=== PATIENT | male | born 1990 | race Caucasian/White ===

== ENCOUNTER → 2017-06-13 | Outpatient (CLI) | payer BC ==
--- NOTE | 2017-06-13 14:49 | XR ---
EXAMINATION TYPE: XR abdomen 1V DATE OF EXAM: 06/13/2017 COMPARISON: NONE INDICATION: Renal stone inability to urinate TECHNIQUE: Single view abdomen frontal projection FINDINGS: There is a normal bowel gas pattern. Psoas margins are normal. No organomegaly is present. No suspicious renal or ureteral stones are identified. IMPRESSION: 1. Unremarkable Abdomen
== END | disposition home or self-care (01) ==
LOC: RADXRYALE 14:25
PROVIDERS: ATTEND Urology
DX: N20.0 Calculus of kidney (principal)
CPT/HCPCS: 74018

== ENCOUNTER 2017-08-25 15:46 | Emergency (ER) | payer BC ==
[2017-08-25 16:00] VITALS: RESP 18
[2017-08-25 16:31] LABS: Appearance,Urine Clear (Clear); Bilirubin,Urine Negative (Negative); Blood,Urine Negative (Negative); Color,Urine Light Yellow; Glucose,Urine (UA) Negative (Negative); Ketones,Urine Negative (Negative); Leukocyte Esterase,Urine Negative (Negative); Nitrite,Urine Negative (Negative); Protein,Urine Negative (Negative); Specific Gravity,Urine 1.012 (1.001-1.035); Urobilinogen,Urine <2.0 mg/dL (<2.0)
--- NOTE | 2017-08-25 16:31 | ED ---
General Adult HPI - General Chief complaint: Urogenital Stated complaint: Male Time Seen by Provider: 08/25/17 16:02 Source: patient, RN notes reviewed Mode of arrival: ambulatory Limitations: no limitations - History of Present Illness Initial comments: Patient 27-year-old male presenting to the emergency room today with chief complaint of urinary retention. Patient does admit unsure if it's related to possible kidney stone. He states that his noticed that his had a difficult time urinating over the last week. He states that it decreased stream. He does admit to a history of stricture. Patient states that she had to strain to urinate today. Patient does admit that his bladder feels full. Admits to pressure and lower abdomen. Denies any other complaints or symptoms. Patient denies any recent fever, chills, shortness of breath, chest pain, back pain, nausea or vomiting, numbness or tingling, constipation or diarrhea, headaches or visual changes, or any other complaints. - Related Data Home Medications Medication Instructions Recorded Confirmed Amoxicillin 875 mg PO Q12HR 08/25/17 08/25/17 Allergies Allergy/AdvReac Type Severity Reaction Status Date / Time No Known Allergies Allergy Verified 08/25/17 16:15 Review of Systems ROS Statement: Those systems with pertinent positive or pertinent negative responses have been documented in the HPI. ROS Other: All systems not noted in ROS Statement are negative. Past Medical History Past Medical History: No Reported History History of Any Multi-Drug Resistant Organisms: None Reported Additional Past Surgical History / Comment(s): structure to ureter. Past Psychological History: No Psychological Hx Reported Smoking Status: Never smoker Past Alcohol Use History: Rare Past Drug Use History: None Reported General Exam - General Exam Comments Initial Comments: General: The patient is awake and alert, in no distress, and does not appear acutely ill. Eye: Pupils are equal, round and reactive to light, extra-ocular movements are intact. No nystagmus. There is normal conjunctiva bilaterally. No signs of icterus. Ears, nose, mouth and throat: There are moist mucous membranes and no oral lesions. Neck: The neck is supple, there is no tenderness or JVD. Cardiovascular: There is a regular rate and rhythm. No murmur, rub or gallop is appreciated. Respiratory: Lungs are clear to auscultation, respirations are non-labored, breath sounds are equal. No wheezes, stridor, rales, or rhonchi. Gastrointestinal: Abdomen soft on palpation. Patient does have tenderness suprapubic over the bladder. No rebound tenderness. No guarding. No CVA tenderness. Musculoskeletal: Normal ROM, no tenderness. Strength 5/5. Sensation intact. Neurological: A&O x 3. CN II-XII intact, There are no obvious motor or sensory deficits. Coordination appears grossly intact. Speech is normal. Skin: Skin is warm and dry and no rashes or lesions are noted. Psychiatric: Cooperative, appropriate mood & affect, normal judgment. Limitations: no limitations Course Vital Signs 08/25/17 08/25/17 15:57 16:39 Temperature 98.6 F Pulse Rate 96 80 Respiratory 18 18 Rate Blood Pressure 133/85 162/95 O2 Sat by Pulse 99 96 Oximetry Medical Decision Making - Medical Decision Making Patient's bladder scan showed greater than a liter. A Man catheter was placed. Patient feeling much better at this time. Exam is soft nontender. Patient's urinalysis reviewed showing no evidence of infection. Patient does admit that he is on antibiotics of Augmentin for sinus infection. Patient will be given a leg bag and advised to follow-up with urology. He states he has [facility] [place] but lives closer to this area would like a referral. Patient is advised to call her office tomorrow for appointment. Advised return if any symptoms increase worsen. - Lab Data Lab Results 08/25/17 Range/Units 16:27 Urine Color Light Yellow Urine Appearance Clear (Clear) Urine pH 6.0 (5.0-8.0) Ur Specific [place] 1.012 (1.001-1.035) Urine Protein Negative (Negative) Urine Glucose (UA) Negative (Negative) Urine Ketones Negative (Negative) Urine Blood Negative (Negative) Urine Nitrite Negative (Negative) Urine Bilirubin Negative (Negative) Urine Urobilinogen <2.0 (<2.0) mg/dL Ur Leukocyte Esterase Negative (Negative) Disposition Clinical Impression: Urinary retention Disposition: HOME SELF-CARE Condition: Good Instructions: Urinary Retention in Men (ED) Additional Instructions: Please follow-up with urologist in the next 1-2 days. Please return to emergency room if the symptoms increase or worsen or for any other concerns. Is patient prescribed a controlled substance at d/c from ED?: No Referrals: Bud Galdamez DO [Primary Care Provider] - 1-2 days Time of Disposition: 16:51
[2017-08-25 16:40] VITALS: BP 162/95; PULSE 80
[2017-08-25 17:03] VITALS: TEMP 97.8
== END 2017-08-25 17:00 | disposition home or self-care (01) ==
LOC: EC 15:46
DX: R33.9 Retention of urine, unspecified (principal); R10.819 Abdominal tenderness, unspecified site
CPT/HCPCS: 51702; 51798; 81003; 87086; 99283

== ENCOUNTER 2018-06-16 08:31 | Day surgery (SDC) | payer BC ==
[2018-06-15 13:42] VITALS: BMI 39.8
[~2018-06-16 08:31] MED LIST: LACTATED RINGERS 1,000 ML IV SCH; LIDOCAINE 1% 20 ML VIAL (10MG/ML) FOR IV START INTRADERMA PRN; MIDAZOLAM (PF) 2 MG/2 ML VIAL IV PRN
[2018-06-16 09:56] VITALS: RESP 16; TEMP 97.2
[2018-06-16] MEDS ORDERED: PROPOFOL 10 MG/ML 20 ML VIAL IV ONE (10:39)
[2018-06-16] MEDS ORDERED: MIDAZOLAM 2 MG/2 ML VIAL ONE (10:39)
[2018-06-16] MEDS ORDERED: fentaNYL (PF) 50 MCG/ML 2 ML AMP ONE (10:39)
--- NOTE | 2018-06-16 11:23 | P.PCN ---
Date of Procedure: 06/16/18 Procedure(s) Performed: Procedures: 1. Esophagogastroduodenoscopy and biopsy. 2. Colonoscopy and biopsy. Preoperative diagnosis: Epigastric pain and altered bowel function. Postoperative diagnosis: 1. Mild antral gastritis. 2. Normal colon and terminal ileum. 3. Multiple biopsies obtained from the duodenum, antrum, esophagus, terminal ileum and right colon. Preparation: HalfLytely prep. Sedation: Was provided by anesthesia. Brief clinical history: The patient is a 28-year-old male who was evaluated in the office last month because of epigastric pain and episodic diarrhea as well as family history of ulcerative colitis in his father. The patient reported occasional black stools and seems like his symptoms were worse over the last month or so. His mother had history of diverticulitis. This would be his first upper endoscopy and his first colonoscopy. Procedure: With the patient on his left lateral decubitus position and after informed consent and adequate sedation, I passed the Olympus-GIF H 190 video upper endoscope through the cricopharyngeus down the esophagus. GE junction was around 42 cm from the incisors and there was no definite hiatal hernia or any obvious esophagitis or complicated reflux disease. The endoscope was then passed into the stomach which was insufflated with air and inspected in detail including the retroflex view in the cardia. There was some minimal mottling and erythema in the antrum but no ulcers or erosions. Pyloric channel, duodenal bulb, post bulbar area and descending duodenum appeared within normal limits. Because of his symptoms, I obtained biopsies from the duodenum, antrum and esophagus then the endoscope was withdrawn and I proceeded with the colonoscopy. Perianal area did not show any fissures or fistulas. There were no masses felt on digital rectal examination. The Olympus CFH 190L video colonoscope was then inserted in the rectum in the usual fashion and advanced to the cecum. I intubated the ileocecal valve and examined the terminal ileum. Terminal ileum and colon appeared healthy with no edema, erythema, friability, ulceration, exudation or spontaneous bleeding. No obvious diverticular disease or other pathology. I obtained biopsies from the terminal ileum and right colon and I retroflexed the endoscope in the rectum before the endoscope was withdrawn. The patient tolerated the procedure well. Plan: The patient was reassured. Will await biopsy results and make further plans based on his course and biopsy results. I will keep you updated on his progress.
[2018-06-16 11:33] VITALS: BP 136/87; PULSE 81
== END 2018-06-16 12:02 | disposition home or self-care (01) ==
LOC: ORWHC2ENDO 08:31
DX: K29.50 Unspecified chronic gastritis without bleeding (principal); K21.9 Gastro-esophageal reflux disease without esophagitis; E66.01 Morbid (severe) obesity due to excess calories; Z68.39 Body mass index [BMI] 39.0-39.9, adult; Z79.899 Other long term (current) drug therapy
CPT/HCPCS: 88305; 45380; 43239; J2250; J3010; J2704

== ENCOUNTER 2018-07-31 14:16 | Emergency (ER) | payer BC ==
[2018-07-31 14:27] VITALS: RESP 16; TEMP 98.3
[2018-07-31] MEDS ORDERED: SODIUM CHLORIDE 0.9% 1,000 ML IV STA (14:52)
[2018-07-31] MEDS ORDERED: KETOROLAC 30 MG/ML 1 ML VIAL IVP STA (14:52)
--- NOTE | 2018-07-31 15:00 | ED ---
General Adult HPI - General Chief complaint: Back Pain/Injury Stated complaint: Kidney pain,poss kidney stone Time Seen by Provider: 07/31/18 14:31 Source: patient Mode of arrival: ambulatory Limitations: no limitations - History of Present Illness Initial comments: Dictation was produced using [employer] dictation software. please excuse any grammatical, word or spelling errors. Chief Complaint: 28-year-old male past medical history of nephrolithiasis presents with left-sided flank pain. History of Present Illness: Is a 28-year-old male with past medical history of nephrolithiasis presents with left-sided flank pain for the past several days. He states he thought he strained his back from lifting however he realizes that he has history of kidney stone. He states that the pain is colicky in nature and radiates down the left flank. Patient had kidney stone approximately 1 year ago. He didn't follow-up with urology. Patient states there was another stone that was seen. Patient otherwise tolerating by mouth. The ROS documented in this emergency department record has been reviewed and confirmed by me. Those systems with pertinent positive or negative responses have been documented in the HPI. All other systems are other negative and/or noncontributory. PHYSICAL EXAM: General Impression: Alert and oriented x3, not in acute distress HEENT: Normocephalic atraumatic, extra-ocular movements intact, pupils equal and reactive to light bilaterally, mucous membranes moist. Cardiovascular: Heart regular rate and rhythm, S1&S2 audible, no murmurs, rubs or gallops Chest: Lungs clear to auscultation bilaterally, no rhonchi, no wheeze, no rales Abdomen: Bowel sounds present, abdomen soft, non-tender, non-distended, no organomegaly Musculoskeletal: Pulses present and equal in all extremities, no peripheral edema Motor: no focal deficits noted Neurological: CN II-XII grossly intact, no focal motor or sensory deficits noted Skin: Intact with no visualized rashes Psych: Normal affect and mood ED course: 28-year-old male with past medical history nephrolithiasis presents with chief complaint of flank pain. All signs upon arrival are within acceptable limits. He states his symptoms today are similar to last year when he was diagnosed with kidney stone. Clinical presentation consistent with nephrolithiasis. Urinalysis is unremarkable. CBC, metabolic panel is unremarkable. There was obtained showing possible 2 mm right upper quadrant calculus. Ultrasound of the kidneys does not demonstrate any hydronephrosis. Patient given intravenous fluids and IV analgesia with improvement of symptoms. Patient to be discharged told to follow-up with urologist as outpatient. He does have a urologist named Dr. Rodriguez In [place]. Agreeable to Plan. - Related Data Home Medications Medication Instructions Recorded Confirmed Ascorbic Acid [Vitamin C] 500 mg PO DAILY 06/15/18 07/31/18 Cholecalciferol [Vitamin D3] 1,000 unit PO DAILY 06/15/18 07/31/18 Multivitamin [Multivitamins Adult 1 tab PO DAILY 06/15/18 07/31/18 Gummies] Omeprazole 20 mg PO DAILY PRN 06/15/18 07/31/18 Tumeric (Unknown) 1 tab PO DAILY 07/31/18 07/31/18 Previous Rx's Medication Instructions Recorded HYDROcodone/APAP 5-325MG [[place] 1 tab PO Q6HR PRN 3 Days #12 tab 07/31/18 5-325] Allergies Allergy/AdvReac Type Severity Reaction Status Date / Time No Known Allergies Allergy Verified 07/31/18 15:16 Review of Systems ROS Statement: Those systems with pertinent positive or pertinent negative responses have been documented in the HPI. ROS Other: All systems not noted in ROS Statement are negative. Past Medical History Past Medical History: GERD/Reflux Additional Past Medical History / Comment(s): abdominal pain,prior bleeding and mucus with stools,steroid /May 2018. hx of kidney stones. 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 Past Anesthesia/Blood Transfusion Reactions: No Reported Reaction Additional Past Anesthesia/Blood Transfusion Reaction / Comment(s): no hx blood transfusion Past Psychological History: No Psychological Hx Reported Smoking Status: Never smoker - Past Family History Father Additional Family Medical History / Comment(s): ulcerative colitis Mother Additional Family Medical History / Comment(s): diverticulitis General Exam Limitations: no limitations Course Vital Signs 07/31/18 07/31/18 14:23 15:58 Temperature 98.3 F Pulse Rate 75 70 Respiratory 16 16 Rate Blood Pressure 145/83 150/102 O2 Sat by Pulse 98 99 Oximetry Medical Decision Making - Lab Data Result diagrams: 07/31/18 15:00 07/31/18 15:00 Lab Results 07/31/18 07/31/18 07/31/18 Range/Units 15:00 15:00 15:00 WBC 9.0 (3.8-10.6) k/uL RBC 4.57 (4.30-5.90) m/uL Hgb 13.7 (13.0-17.5) gm/dL Hct 40.2 (39.0-53.0) % MCV 87.8 (80.0-100.0) fL MCH 30.0 (25.0-35.0) pg MCHC 34.1 (31.0-37.0) g/dL RDW 13.9 (11.5-15.5) % Plt Count 340 (150-450) k/uL Neutrophils % 64 % Lymphocytes % 25 % Monocytes % 6 % Eosinophils % 3 % Basophils % 0 % Neutrophils # 5.8 (1.3-7.7) k/uL Lymphocytes # 2.3 (1.0-4.8) k/uL Monocytes # 0.5 (0-1.0) k/uL Eosinophils # 0.3 (0-0.7) k/uL Basophils # 0.0 (0-0.2) k/uL Sodium 140 (137-145) mmol/L Potassium 4.3 (3.5-5.1) mmol/L Chloride 109 H (98-107) mmol/L Carbon Dioxide 23 (22-30) mmol/L Anion Gap 8 mmol/L BUN 13 (9-20) mg/dL Creatinine 0.84 (0.66-1.25) mg/dL Est GFR (CKD-EPI)AfAm >90 (>60 ml/min/1.73 sqM) Est GFR (CKD-EPI)NonAf >90 (>60 ml/min/1.73 sqM) Glucose 88 (74-99) mg/dL Calcium 9.4 (8.4-10.2) mg/dL Urine Color Light Yellow Urine Appearance Clear (Clear) Urine pH 6.5 (5.0-8.0) Ur Specific [place] 1.007 (1.001-1.035) Urine Protein Negative (Negative) Urine Glucose (UA) Negative (Negative) Urine Ketones Negative (Negative) Urine Blood Negative (Negative) Urine Nitrite Negative (Negative) Urine Bilirubin Negative (Negative) Urine Urobilinogen <2.0 (<2.0) mg/dL Ur Leukocyte Esterase Negative (Negative) Disposition Clinical Impression: Flank pain Disposition: HOME SELF-CARE Condition: Good Instructions (If sedation given, give patient instructions): Kidney Stones (ED) Additional Instructions: follow up with Urologist Prescriptions: HYDROcodone/APAP 5-325MG [[place] 5-325] 1 tab PO Q6HR PRN 3 Days #12 tab PRN Reason: Severe Pain Is patient prescribed a controlled substance at d/c from ED?: Yes Referrals: Akhil Mcghee DO [Primary Care Provider] - 1-2 days Time of Disposition: 16:15
[2018-07-31 15:08] LABS: Basophils % (A) 0 %; Eosinophils # (A) 0.3 k/uL (0-0.7); Eosinophils % (A) 3 %; HCT 40.2 % (39.0-53.0); HGB 13.7 gm/dL (13.0-17.5); Lymphocytes # (A) 2.3 k/uL (1.0-4.8); Lymphocytes % (A) 25 %; MCHC 34.1 g/dL (31.0-37.0); MCV 87.8 fL (80.0-100.0); Mean Platelet Volume 7.2; Monocytes # (A) 0.5 k/uL (0-1.0); Monocytes % (A) 6 %; Neutrophils # (A) 5.8 k/uL (1.3-7.7); Neutrophils % (A) 64 %; Platelet Count 340 k/uL (150-450); RBC 4.57 m/uL (4.30-5.90); RDW 13.9 % (11.5-15.5)
[2018-07-31 15:09] LABS: Appearance,Urine Clear (Clear); Bilirubin,Urine Negative (Negative); Blood,Urine Negative (Negative); Color,Urine Light Yellow; Glucose,Urine (UA) Negative (Negative); Ketones,Urine Negative (Negative); Leukocyte Esterase,Urine Negative (Negative); Nitrite,Urine Negative (Negative); PH, Urine 6.5 (5.0-8.0); Protein,Urine Negative (Negative); Specific Gravity,Urine 1.007 (1.001-1.035); Urobilinogen,Urine <2.0 mg/dL (<2.0)
[2018-07-31 15:27] LABS: Anion Gap 8 mmol/L; Blood Urea Nitrogen 13 mg/dL (9-20); Calcium 9.4 mg/dL (8.4-10.2); Carbon Dioxide 23 mmol/L (22-30); Chloride 109 mmol/L (98-107); Glucose 88 mg/dL (74-99); Potassium 4.3 mmol/L (3.5-5.1); Sodium 140 mmol/L (137-145)
[2018-07-31] MEDS ORDERED: MORPHINE SULFATE 4 MG/ML SYRINGE IVP STA (15:51)
--- NOTE | 2018-07-31 15:53 | XR ---
EXAMINATION TYPE: XR KUB DATE OF EXAM: 07/31/2018 3:43 PM CLINICAL HISTORY: Left flank pain with history of nephrolithiasis TECHNIQUE: Single upright image of the abdomen is obtained. COMPARISON: CT dated 04/01/2016. FINDINGS: Scattered gas is seen in nondilated small bowel loops. Gas and fecal material is seen in no ndilated colon. There is a punctate right calculus in the right upper quadrant that may be related to a small gallstone or renal calculus the lung bases are clear and the osseous structures are intact. IMPRESSION: A 2 mm right upper quadrant calculus could represent nephrolithiasis or cholelithiasis. N o other suspicious calculi in the abdomen or pelvis. Nonobstructive bowel gas pattern.
[2018-07-31 15:59] VITALS: BP 150/102
--- NOTE | 2018-07-31 15:59 | US ---
EXAMINATION TYPE: US kidneys/renal and bladder DATE OF EXAM: 07/31/2018 COMPARISON: CT CLINICAL HISTORY: Pain. Left flank pain EXAM MEASUREMENTS: Right Kidney: 12.3 x 6.4 x 6.3 cm Left Kidney: 11.9 x 6.7 x 6.6 cm Right Kidney: No hydronephrosis or masses seen Left Kidney: No hydronephrosis, small cyst measures 1.2 x 0.9 x 0.8 cm. Bladder: wnl There is no evidence for hydronephrosis at this point in time. No nephrolithiasis is seen. No mahesh s are identified. The urinary bladder is anechoic. Bilateral ureteral jets are seen. IMPRESSION: Left renal cyst measures 1.2 cm. No hydronephrosis of either kidney. No shadowing renal calculi.
[2018-07-31 16:38] VITALS: PULSE 67
== END 2018-07-31 16:41 | disposition home or self-care (01) ==
LOC: EC 14:16
DX: R10.9 Unspecified abdominal pain (principal); K21.9 Gastro-esophageal reflux disease without esophagitis; Z87.442 Personal history of urinary calculi; Z79.899 Other long term (current) drug therapy
CPT/HCPCS: 36415; 80048; 85025; 81003; 87086; 74018; 76770; 99284; 96374; 96375; 96361 ×2; J2270; J1885

== ENCOUNTER → 2018-12-14 | Outpatient (CLI) | payer BC ==
--- NOTE | 2018-12-15 09:33 | XR ---
EXAMINATION TYPE: XR ankle complete RT DATE OF EXAM: 12/14/2018 CLINICAL HISTORY: Medial ankle pain. TECHNIQUE: Frontal, lateral and oblique images of the right ankle are obtained. COMPARISON: None. FINDINGS: Mild soft tissue swelling is seen along the medial ankle with a few linear and tiny osseous fragments seen along the medial malleolus. Ankle mortise intact. No evidence of dislocation. Joint s paces are preserved. Small plantar aspect calcaneal spur. IMPRESSION: Small avulsion fractures at the medial malleolus with soft tissue swelling suggestive of underlying l igamentous injury.
== END ==
LOC: RADXRYALE 16:10
PROVIDERS: ATTEND Physician Assistant Medical

== ENCOUNTER 2018-12-20 11:47 | Emergency (ER) | payer BC ==
[2018-12-20] MEDS ORDERED: ONDANSETRON 4 MG/2 ML VIAL IVP STA (12:10)
[2018-12-20] MEDS ORDERED: KETOROLAC 30 MG/ML 1 ML VIAL IVP STA (12:10)
[2018-12-20] MEDS ORDERED: SODIUM CHLORIDE 0.9% 1,000 ML IV STA (12:10)
[2018-12-20 12:21] LABS: Basophils # (A) 0.1 k/uL (0-0.2); Basophils % (A) 0 %; Eosinophils # (A) 0.1 k/uL (0-0.7); Eosinophils % (A) 1 %; HCT 44.5 % (39.0-53.0); Lymphocytes # (A) 2.1 k/uL (1.0-4.8); Lymphocytes % (A) 17 %; MCH 29.2 pg (25.0-35.0); MCHC 33.7 g/dL (31.0-37.0); MCV 86.5 fL (80.0-100.0); Monocytes # (A) 0.7 k/uL (0-1.0); Monocytes % (A) 5 %; Neutrophils # (A) 9.3 k/uL (1.3-7.7); Neutrophils % (A) 75 %; Platelet Count 385 k/uL (150-450); RBC 5.15 m/uL (4.30-5.90); RDW 13.3 % (11.5-15.5); WBC 12.4 k/uL (3.8-10.6)
[2018-12-20 12:29] LABS: ALT 33 U/L (21-72); AST 27 U/L (17-59); African American GFR (CKD) >90 (>60 ml/min/1.73 sqM); Albumin 4.4 g/dL (3.5-5.0); Alkaline Phosphatase 103 U/L (38-126); Anion Gap 12 mmol/L; Blood Urea Nitrogen 12 mg/dL (9-20); Calcium 9.7 mg/dL (8.4-10.2); Carbon Dioxide 24 mmol/L (22-30); Chloride 106 mmol/L (98-107); Glucose 100 mg/dL (74-99); Non-African American GFR(CKD) 87 (>60 ml/min/1.73 sqM); Sodium 142 mmol/L (137-145); Total Bilirubin 0.7 mg/dL (0.2-1.3); Total Protein 7.6 g/dL (6.3-8.2)
--- NOTE | 2018-12-20 12:32 | ED ---
Abdominal Pain HPI - General Chief Complaint: Abdominal Pain Stated Complaint: Abd/flank pain Time Seen by Provider: 12/20/18 11:52 Source: patient Mode of arrival: wheelchair Limitations: no limitations - History of Present Illness Initial Comments: Patient is a 28-year-old male presenting to the emergency Department with complaints of abdominal pain since this morning. Patient states the pain woke him up early this morning. He states the pain started around his belly button and then traveled to the right lower quadrant. Patient reports associated nausea and vomiting. He describes the pain as sharp and constant. States the pain 8/10. Patient does have a history of kidney stones but he says this feels different. Patient had a lot of pain on a car ride here. Patient denies fever, chills, shortness of breath, diarrhea. Patient's last bowel movement was this morning was normal. Patient denies history of abdominal surgeries. No other complaints at this time. - Related Data Home Medications Medication Instructions Recorded Confirmed Ascorbic Acid [Vitamin C] 500 mg PO DAILY 06/15/18 07/31/18 Cholecalciferol [Vitamin D3] 1,000 unit PO DAILY 06/15/18 07/31/18 Multivitamin [Multivitamins Adult 1 tab PO DAILY 06/15/18 07/31/18 Gummies] Omeprazole 20 mg PO DAILY PRN 06/15/18 07/31/18 Tumeric (Unknown) 1 tab PO DAILY 07/31/18 07/31/18 Previous Rx's Medication Instructions Recorded HYDROcodone/APAP 5-325MG [[place] 1 tab PO Q6HR PRN 3 Days #12 tab 07/31/18 5-325] Ketorolac [Toradol] 10 mg PO Q8HR #15 tab 12/20/18 Ondansetron Odt [Zofran Odt] 4 mg PO Q8HR PRN #10 tab 12/20/18 Tamsulosin [Flomax] 0.4 mg PO DAILY #7 cap 12/20/18 Allergies Allergy/AdvReac Type Severity Reaction Status Date / Time No Known Allergies Allergy Verified 12/20/18 11:48 Review of Systems ROS Statement: Those systems with pertinent positive or pertinent negative responses have been documented in the HPI. ROS Other: All systems not noted in ROS Statement are negative. Past Medical History Past Medical History: GERD/Reflux Additional Past Medical History / Comment(s): abdominal pain,prior bleeding and mucus with stools,steroid /May 2018. hx of kidney stones. 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 Past Anesthesia/Blood Transfusion Reactions: No Reported Reaction Additional Past Anesthesia/Blood Transfusion Reaction / Comment(s): no hx blood transfusion Past Psychological History: No Psychological Hx Reported Smoking Status: Never smoker Past Alcohol Use History: None Reported Past Drug Use History: None Reported - Past Family History Father Additional Family Medical History / Comment(s): ulcerative colitis Mother Additional Family Medical History / Comment(s): diverticulitis General Exam - General Exam Comments Initial Comments: GENERAL: Obese, well-appearing, well-nourished and in mild distress secondary to pain. HEAD: Atraumatic, normocephalic. EYES: Pupils equal round and reactive to light, extraocular movements intact, sclera anicteric, conjunctiva are normal. ENT: TMs normal, nares patent, oropharynx clear without exudates. Moist mucous membranes. NECK: Normal range of motion, supple without lymphadenopathy or JVD. LUNGS: Breath sounds clear to auscultation bilaterally and equal. No wheezes rales or rhonchi. HEART: Regular rate and rhythm without murmurs, rubs or gallops. ABDOMEN: Tender to palpation the umbilical and right lower quadrant. Positive rebound tenderness. Soft, normoactive bowel sounds. No masses appreciated. : Deferred EXTREMITIES: Normal range of motion, no pitting or edema. No clubbing or cyanosis. NEUROLOGICAL: Cranial nerves II through XII grossly intact. Normal speech, normal gait. PSYCH: Normal mood, normal affect. SKIN: Warm, Dry, normal turgor, no rashes or lesions noted. Limitations: no limitations Course Vital Signs 12/20/18 12/20/18 11:48 13:00 Temperature 97.8 F 98.4 F Pulse Rate 74 86 Respiratory 24 16 Rate Blood Pressure 149/77 140/86 O2 Sat by Pulse 98 99 Oximetry Medical Decision Making - Medical Decision Making Patient is a 28-year-old male presenting with right lower quadrant pain since this morning. Patient also has associated nausea and vomiting. Arrival to the ER medicines are stable, patient afebrile. On exam patient has tenderness to right lower quadrant with positive rebound. CBC shows slight leukocytosis likely reactive. CMP is within normal limits. Lactic acid is 2.4, likely from active vomiting. UA shows a few RBCs. No signs of infection. CT of the abdomen shows a 2.5 mm partially obstructing renal right calculus in the level of the UVJ. Appendix appears normal. Patient was given fluids and pain medication and reports improvement this time. Patient is stable for discharge and he is in agreement with this plan. Patient be sent home with Flomax, pain a nd nausea medication. Patient will follow-up with neurologist if symptoms continue. Return parameters were discussed with patient and he verbalized understanding. Case discussed with Dr. Simmons. - Lab Data Result diagrams: 12/20/18 12:02 12/20/18 12:02 Lab Results 12/20/18 12/20/18 12/20/18 Range/Units 12:02 12:02 12:02 WBC 12.4 H (3.8-10.6) k/uL RBC 5.15 (4.30-5.90) m/uL Hgb 15.0 (13.0-17.5) gm/dL Hct 44.5 (39.0-53.0) % MCV 86.5 (80.0-100.0) fL MCH 29.2 (25.0-35.0) pg MCHC 33.7 (31.0-37.0) g/dL RDW 13.3 (11.5-15.5) % Plt Count 385 (150-450) k/uL Neutrophils % 75 % Lymphocytes % 17 % Monocytes % 5 % Eosinophils % 1 % Basophils % 0 % Neutrophils # 9.3 H (1.3-7.7) k/uL Lymphocytes # 2.1 (1.0-4.8) k/uL Monocytes # 0.7 (0-1.0) k/uL Eosinophils # 0.1 (0-0.7) k/uL Basophils # 0.1 (0-0.2) k/uL Sodium 142 (137-145) mmol/L Potassium 4.0 (3.5-5.1) mmol/L Chloride 106 (98-107) mmol/L Carbon Dioxide 24 (22-30) mmol/L Anion Gap 12 mmol/L BUN 12 (9-20) mg/dL Creatinine 1.13 (0.66-1.25) mg/dL Est GFR (CKD-EPI)AfAm >90 (>60 ml/min/1.73 sqM) Est GFR (CKD-EPI)NonAf 87 (>60 ml/min/1.73 sqM) Glucose 100 H (74-99) mg/dL Plasma Lactic Acid Micah 2.4 H* (0.7-2.0) mmol/L Calcium 9.7 (8.4-10.2) mg/dL Total Bilirubin 0.7 (0.2-1.3) mg/dL AST 27 (17-59) U/L ALT 33 (21-72) U/L Alkaline Phosphatase 103 (38-126) U/L Total Protein 7.6 (6.3-8.2) g/dL Albumin 4.4 (3.5-5.0) g/dL Urine Color Urine Appearance (Clear) Urine pH (5.0-8.0) Ur Specific [place] (1.001-1.035) Urine Protein (Negative) Urine Glucose (UA) (Negative) Urine Ketones (Negative) Urine Blood (Negative) Urine Nitrite (Negative) Urine Bilirubin (Negative) Urine Urobilinogen (<2.0) mg/dL Ur Leukocyte Esterase (Negative) Urine RBC (0-5) /hpf Urine WBC (0-5) /hpf Amorphous Sediment (None) /hpf Urine Mucus (None) /hpf 12/20/18 Range/Units 13:25 WBC (3.8-10.6) k/uL RBC (4.30-5.90) m/uL Hgb (13.0-17.5) gm/dL Hct (39.0-53.0) % MCV (80.0-100.0) fL MCH (25.0-35.0) pg MCHC (31.0-37.0) g/dL RDW (11.5-15.5) % Plt Count (150-450) k/uL Neutrophils % % Lymphocytes % % Monocytes % % Eosinophils % % Basophils % % Neutrophils # (1.3-7.7) k/uL Lymphocytes # (1.0-4.8) k/uL Monocytes # (0-1.0) k/uL Eosinophils # (0-0.7) k/uL Basophils # (0-0.2) k/uL Sodium (137-145) mmol/L Potassium (3.5-5.1) mmol/L Chloride (98-107) mmol/L Carbon Dioxide (22-30) mmol/L Anion Gap mmol/L BUN (9-20) mg/dL Creatinine (0.66-1.25) mg/dL Est GFR (CKD-EPI)AfAm (>60 ml/min/1.73 sqM) Est GFR (CKD-EPI)NonAf (>60 ml/min/1.73 sqM) Glucose (74-99) mg/dL Plasma Lactic Acid Micah (0.7-2.0) mmol/L Calcium (8.4-10.2) mg/dL Total Bilirubin (0.2-1.3) mg/dL AST (17-59) U/L ALT (21-72) U/L Alkaline Phosphatase (38-126) U/L Total Protein (6.3-8.2) g/dL Albumin (3.5-5.0) g/dL Urine Color Yellow Urine Appearance Cloudy (Clear) Urine pH 8.5 H (5.0-8.0) Ur Specific [place] 1.042 H (1.001-1.035) Urine Protein Negative (Negative) Urine Glucose (UA) Negative (Negative) Urine Ketones Negative (Negative) Urine Blood Negative (Negative) Urine Nitrite Negative (Negative) Urine Bilirubin Negative (Negative) Urine Urobilinogen <2.0 (<2.0) mg/dL Ur Leukocyte Esterase Moderate H (Negative) Urine RBC 6 H (0-5) /hpf Urine WBC 3 (0-5) /hpf Amorphous Sediment Occasional H (None) /hpf Urine Mucus Rare H (None) /hpf Disposition Clinical Impression: Kidney stone on right side Disposition: HOME SELF-CARE Condition: Stable Instructions (If sedation given, give patient instructions): Kidney Stones (ED) Additional Instructions: Please return to the Emergency Department if symptoms worsen or any other concerns. Continue with Flomax, Zofran for nausea, pain medicine. Follow-up with urology as discussed. Prescriptions: Tamsulosin [Flomax] 0.4 mg PO DAILY #7 cap Ketorolac [Toradol] 10 mg PO Q8HR #15 tab Ondansetron Odt [Zofran Odt] 4 mg PO Q8HR PRN #10 tab PRN Reason: Nausea Is patient prescribed a controlled substance at d/c from ED?: No Referrals: Akhil Mcghee DO [Primary Care Provider] - 1-2 days
[2018-12-20] MEDS ORDERED: MORPHINE SULFATE 4 MG/ML SYRINGE IVP STA (12:39)
--- NOTE | 2018-12-20 13:00 | CT ---
EXAMINATION TYPE: CT abdomen pelvis w con DATE OF EXAM: 12/20/2018 REFERENCE: NONE HISTORY: Pain HISTORY: Lower abdominal/pelvic pain REFERENCE: NONE CT DLP: 1860.6 mGy Automated exposure control for dose reduction was used. TECHNIQUE: Helical acquisition through the abdomen and pelvis was obtained following the oral ingesti on of without Oral Contrast and following intravenous administration of 100 mL of Isovue 300. The keren a was reformatted in axial, coronal and sagittal projections. FINDINGS: Visualized portions of the lungs are clear. There is no pleural or pericardial fluid. The heart is not enlarged. Within the abdomen, the liver is prominent measuring 21 cm. Spleen is upper limits of normal measurin g 13.2 cm. The gallbladder is unremarkable. Both adrenal glands are normal. There is a 1 to 2 mm calculus in the anterior lower pole calyx of the right kidney. There is a 2.5 mm calculus at the level of the right UVJ. There is mild fullness of the ureter and renal pelvis on the right. There is a 1 mm calculus in the anterior lower pole calyx of the left kidney. There is no evidence of hydronephrosis or hydroureter. Limited views of the pancreas are normal. There is no significant retroperitoneal, iliac or inguinal adenopathy. The bladder is unremarkable. There is no significant diverticular change and there is no radiographic evidence of diverticulitis. The appendix is normal. Small bowel loops are normal. There is no evidence of free fluid or free air. IMPRESSION: 1. 2.5 MM PARTIALLY OBSTRUCTING RIGHT RENAL CALCULUS IN THE LEVEL OF THE UVJ. 2. BILATERAL NONOBSTRUCTING NEPHROLITHIASIS. 3. MILD HEPATOSPLENOMEGALY.
[2018-12-20 13:15] VITALS: BP 140/86; PULSE 86; RESP 16; TEMP 98.4
[2018-12-20 13:36] LABS: Amorphous Sediment,Urine Occasional /hpf; Appearance,Urine Cloudy (Clear); Bilirubin,Urine Negative (Negative); Blood,Urine Negative (Negative); Color,Urine Yellow; Glucose,Urine (UA) Negative (Negative); Ketones,Urine Negative (Negative); Leukocyte Esterase,Urine Moderate (Negative); Mucus,Urine Rare /hpf; Nitrite,Urine Negative (Negative); PH, Urine 8.5 (5.0-8.0); Protein,Urine Negative (Negative); RBC,Urine 6 /hpf (0-5); Specific Gravity,Urine 1.042 (1.001-1.035); Urobilinogen,Urine <2.0 mg/dL (<2.0); WBC,Urine 3 /hpf (0-5)
[2018-12-20] MEDS ORDERED: ACET/COD 300 MG/30 MG STARTER PACK 6 TAB BTL PO STA (13:43)
== END 2018-12-20 13:55 | disposition home or self-care (01) ==
LOC: EC 11:47
DX: N20.0 Calculus of kidney (principal); D72.829 Elevated white blood cell count, unspecified
CPT/HCPCS: 36415; 80053; 83605; 85025; 81001; 74177; 99284; 96374; 96375 ×2; 96361 ×2; J2270; J2405; J1885; Q9967

== ENCOUNTER → 2019-04-06 | Outpatient (CLI) | payer BC ==
--- NOTE | 2019-04-06 11:57 | CT ---
EXAMINATION TYPE: CT brain wo con DATE OF EXAM: 04/06/2019 COMPARISON: None HISTORY: 28-year-old male Slip and fall, struck back of head, dizziness TECHNIQUE: Examination was done in axial plane without intravenous contrast. Coronal and sagittal r econstructions performed. CT DLP: 1227 mGycm Automated exposure control for dose reduction was used. FINDINGS: There is no evidence of acute intracranial hemorrhage, acute ischemic changes, mass, mass-effect, or extra-axial fluid collection. There is no effacement of cerebral sulci or basal subarachnoid cister ns. There is no hydrocephalus. There is no midline shift. Johnson-white matter distinction is preserv ed. No calvarial fracture. Paranasal sinuses and mastoid air cells are pneumatized. Orbits and globes are intact. IMPRESSION: No acute intracranial abnormality seen.
== END | disposition home or self-care (01) ==
LOC: RADCTMAIN 11:19
PROVIDERS: ATTEND Physician Assistant Medical
DX: R51 Headache (principal); R42 Dizziness and giddiness
CPT/HCPCS: 70450

== ENCOUNTER → 2019-07-02 | Outpatient (CLI) | payer BC ==
--- NOTE | 2019-07-02 14:49 | XR ---
EXAMINATION TYPE: XR chest 2V DATE OF EXAM: 07/02/2019 COMPARISON: None HISTORY: 29-year-old male shortness of breath and cough TECHNIQUE: Frontal and lateral views FINDINGS: The cardiomediastinal silhouette, aorta, and pulmonary vasculature are within normal limits. Lungs an d pleural spaces are clear. IMPRESSION: No acute cardiopulmonary process.
== END | disposition home or self-care (01) ==
LOC: RADXRYALE 13:23
PROVIDERS: ATTEND Physician Assistant
DX: R05 Cough (principal); R06.02 Shortness of breath
CPT/HCPCS: 71046

== ENCOUNTER → 2019-09-07 | Outpatient (CLI) | payer BC | END | disposition home or self-care (01) | LOC: LABWHC1 09:34 | PROVIDERS: ATTEND Family Medicine | DX: R50.9 Fever, unspecified (principal); R05 Cough | CPT/HCPCS: 87635 ==

== ENCOUNTER → 2020-02-15 | Outpatient (CLI) | payer BC | END | disposition home or self-care (01) | LOC: LABWHC1 13:03 | PROVIDERS: ATTEND Family Medicine | DX: R05 Cough (principal); M79.18 Myalgia, other site | CPT/HCPCS: U0003; C9803 ==

== ENCOUNTER → 2020-02-23 | Outpatient (CLI) | payer BC ==
--- NOTE | 2020-02-23 22:35 | MR ---
EXAMINATION TYPE: MR brain wo con DATE OF EXAM: 02/23/2020 COMPARISON: CT brain April 06, 2019 HISTORY: Headache, amnesia, diplopia, head trauma Apr 2019 TECHNIQUE: Multiplanar, multisequence imaging of the brain and brainstem is performed without IV cont rast. FINDINGS: Diffusion weighted images demonstrate no evidence of a recent infarct or other diffusion abnormality. There is no worrisome extra-axial fluid collection. The ventricular system and cisternal spaces are normal in size and appearance. The brain volume is age appropriate. Occasional tiny focus of T2 hype rintensity scattered throughout the white matter bilaterally. Approximately 5-10 small scattered lesi ons are seen. For reference 3-4 left-sided lesions noted axial image 22 in the deep white matter. T2 Star weighted images show no suspicious intraparenchymal blood product. Midline structures demonstrate normal morphology. The craniocervical junction appears within normal limits. Normal vascular flow voids are present. The visualized sinuses are clear and the globes are i ntact. IMPRESSION: Mild nonspecific white matter changes may be on basis of altered vascular mechanics relat ed to product of migraine headaches given patient's history.
== END | disposition home or self-care (01) ==
LOC: RADMRIMAIN 21:40
PROVIDERS: ATTEND Physician Assistant
DX: R90.82 White matter disease, unspecified (principal); H53.2 Diplopia; R41.3 Other amnesia; R51.0 Headache with orthostatic component, not elsewhere classified
CPT/HCPCS: 70551

== ENCOUNTER → 2021-04-17 | Outpatient (CLI) | payer BC ==
--- NOTE | 2021-04-17 16:31 | CONS ---
CONSULTATION REASON FOR EVALUATION: Sleep apnea HISTORY OF PRESENT ILLNESS: A 30-year-old male patient referred to me for sleep apnea evaluation. The patient was in a good state of health until around 1-1/2 years ago when the patient had an episode of slipping on ice and the patient sustained a concussion to his head. Following that, he started having increased seizures and hypersomnia and fatigue. He gained around 50 pounds since then and for now there is a concern for obstructive sleep apnea and for that reason, patient was referred to me. In terms of his seizures, he is well controlled on Depakote. He is not having active seizures for now. The patient has snoring and he quits breathing at nighttime. He has excessive daytime tiredness and fatigue and sleepiness. He is having trouble paying attention and problems with concentration and memory. 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 For now, he is going to bed around 3:30 am and getting out of bed around 9:00 am. He might take a nap or 2 if needed depending on his condition. He feels drowsy and sleepy during the day. He can easily fall asleep. He is unable to sleep on his back because of loud snore and apnea sleep on his side and stomach. No sleep paralysis. No hallucinations. No cataplexy. No nocturnal seizures. His current Ossian score is at 15. He also has difficulties with urethral stricture and the patient undergoes self catheterization. PAST MEDICAL HISTORY: 1. Head concussion. 2. Seizure disorder. 3. Urethral stricture. 4. Morbid obesity. PAST SURGICAL HISTORY: Includes surgical repair of a urethral stricture. DRUG ALLERGIES: Not known. OUTPATIENT MEDICATIONS INCLUDE: Depakote 750 mg 1 tab in the morning. SOCIAL HISTORY: Nonsmoker. No history of alcohol. No history of IV drugs. Drinks 1 whole cup of coffee on a daily basis. FAMILY HISTORY: Positive for kidney stone in the father, heart disease in grandfather and uncle. REVIEW OF SYSTEMS: Fourteen-point review of system was done. Positive findings are mentioned in history of present illness. The patient is a late sleeper and he has delayed sleep phase syndrome. At same time, the patient has no heartburn, shortness of breath or chest pain overnight. He prefers to sleep on his side. No grinding of the teeth. No sleepwalking or sleep talking. He has noted to wake up occasionally gasping for air and he has also noted to stop breathing during sleep. He snores. He has excessive fatigue and tiredness. No nocturnal seizure activity. PHYSICAL EXAMINATION: VITAL SIGNS: BP is 153/86, pulse 86, respirations 16, temperature 97.8. Neck size 19.5 inches. Height is 6 feet 1 inch, weight is 328. Saturation 98% on room air. BMI is 47.6. GENERAL APPEARANCE: Obese, calm, comfortable. HEAD: Atraumatic, normocephalic. NECK: Supple. No JVD. No goiter or neck mass. Mallampati class 4. LUNGS: Diminished, otherwise clear. HEART: Heart sounds are regular rate and rhythm. Normal S1, S2. No S3, no murmurs. ABDOMEN: Soft, nontender. No organomegaly. Obese. EXTREMITIES: Trace edema. There is no cyanosis or clubbing. IMPRESSION: 1. Chronic hypersomnia post brain concussion. High likelihood for obstructive sleep apnea. The patient has a Mallampati class 4. He has loud snoring and witnessed apneas. The patient carries an Ossian score of 15. 2. Morbid obesity. BMI of 47.6. 3. History of head concussion. 4. History of seizure disorder, well controlled on Depakote. 5. History of urethral stricture. PLAN: 1. Proceed with an in-lab polysomnogram to evaluate for sleep breathing disorder. This will be also a good opportunity to rule out any nocturnal seizures. 2. Encourage weight loss. 3. Implement good sleep hygiene measures. 4. The patient has an obvious delayed component of sleep phase. This needs to be advanced slowly and I suggested the patient getting up earlier in the morning and moving his wake up time by around 1 hour every week. He is interested in shifting his sleep back to somewhere between midnight and 6 or 7 o'clock in the morning. This is possible. He needs to eliminate all naps during the day. Implement good sleep hygiene measures. Gradually phase advance his sleep and we will continue to follow. MMODL / IJN: [id number] /
== END | disposition home or self-care (01) ==
LOC: SLEEP 13:49
PROVIDERS: ATTEND Internal Medicine Critical Care Medicine
DX: G47.33 Obstructive sleep apnea (adult) (pediatric) (principal); E66.01 Morbid (severe) obesity due to excess calories; Z68.42 Body mass index [BMI] 45.0-49.9, adult
CPT/HCPCS: 99211

== ENCOUNTER 2021-06-28 02:02 | Emergency (ER) | payer BC ==
[2021-06-28] MEDS ORDERED: ONDANSETRON ODT 4 MG TAB PO STA (03:58)
--- NOTE | 2021-06-28 05:42 | ED ---
Nausea/Vomiting/Diarrhea HPI - General Chief complaint: Nausea/Vomiting/Diarrhea Stated complaint: NVD Time Seen by Provider: 06/28/21 03:58 Source: patient Mode of arrival: ambulatory Limitations: no limitations - History of Present Illness Initial comments: This patient is a 31-year-old man who presents with concern that he may have had food poisoning. He states that both he and his son had a frozen drink and then over the course of the past day and a half of had multiple episodes of vomiting and diarrhea. No real abdominal pain and some occasional mild cramping. No fever or chills. No bloody stools. No hematemesis. MD complaint: nausea, vomiting -: days(s) Description of Vomiting: food contents Description of Diarrhea: water Associated Abdominal Pain: No Quality: cramping Consistency: intermittent Improves with: none Worsens with: none Context: possible food poisoning Associated Symptoms: denies other symptoms - Related Data Home Medications Medication Instructions Recorded Confirmed Ascorbic Acid [Vitamin C] 500 mg PO DAILY 06/15/18 07/31/18 Cholecalciferol [Vitamin D3] 1,000 unit PO DAILY 06/15/18 07/31/18 Multivitamin [Multivitamins Adult 1 tab PO DAILY 06/15/18 07/31/18 Gummies] Omeprazole 20 mg PO DAILY PRN 06/15/18 07/31/18 Tumeric (Unknown) 1 tab PO DAILY 07/31/18 07/31/18 Previous Rx's Medication Instructions Recorded HYDROcodone/APAP 5-325MG [[place] 1 tab PO Q6HR PRN 3 Days #12 tab 07/31/18 5-325] Ketorolac [Toradol] 10 mg PO Q8HR #15 tab 12/20/18 Ondansetron Odt [Zofran Odt] 4 mg PO Q8HR PRN #10 tab 12/20/18 Tamsulosin [Flomax] 0.4 mg PO DAILY #7 cap 12/20/18 Allergies Allergy/AdvReac Type Severity Reaction Status Date / Time No Known Allergies Allergy Verified 06/28/21 02:12 Review of Systems ROS Statement: Those systems with pertinent positive or pertinent negative responses have been documented in the HPI. ROS Other: All systems not noted in ROS Statement are negative. Constitutional: Denies: fever, chills Respiratory: Denies: cough, dyspnea Cardiovascular: Denies: chest pain, palpitations Gastrointestinal: Reports: nausea, vomiting, diarrhea. Denies: abdominal pain, constipation, hematemesis, melena, hematochezia Genitourinary: Denies: dysuria, hematuria Musculoskeletal: Denies: back pain Skin: Denies: rash Neurological: Denies: headache, weakness, numbness Past Medical History Past Medical History: GERD/Reflux Additional Past Medical History / Comment(s): abdominal pain,prior bleeding and mucus with stools,steroid /May 2018. hx of kidney stones. 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 Past Anesthesia/Blood Transfusion Reactions: No Reported Reaction Additional Past Anesthesia/Blood Transfusion Reaction / Comment(s): no hx blood transfusion Past Psychological History: No Psychological Hx Reported Smoking Status: Never smoker Past Alcohol Use History: None Reported Past Drug Use History: None Reported - Past Family History Father Additional Family Medical History / Comment(s): ulcerative colitis Mother Additional Family Medical History / Comment(s): diverticulitis General Exam Limitations: no limitations General appearance: alert, in no apparent distress Head exam: Present: atraumatic ENT exam: Present: normal oropharynx Respiratory exam: Present: normal lung sounds bilaterally. Absent: respiratory distress, wheezes, rales, rhonchi, stridor Cardiovascular Exam: Present: regular rate, normal rhythm, normal heart sounds. Absent: systolic murmur, diastolic murmur, rubs, gallop GI/Abdominal exam: Present: soft. Absent: distended, tenderness, guarding, rebound, rigid, mass Neurological exam: Present: alert Skin exam: Present: warm, dry, intact, normal color. Absent: rash Course Vital Signs 06/28/21 06/28/21 02:10 06:20 Temperature 98.1 F 98.4 F Pulse Rate 94 70 Respiratory 20 19 Rate Blood Pressure 155/51 130/83 O2 Sat by Pulse 98 98 Oximetry Medical Decision Making - Lab Data Lab Results 06/28/21 Range/Units 04:34 Coronavirus (PCR) Not Detected (Not Detectd) Disposition Clinical Impression: Gastroenteritis Disposition: HOME SELF-CARE Condition: Good Instructions (If sedation given, give patient instructions): Acute Nausea and Vomiting (ED) Is patient prescribed a controlled substance at d/c from ED?: No Referrals: Akhil Mcghee DO [Primary Care Provider] - 1-2 days
[2021-06-28 06:21] VITALS: BP 130/83; PULSE 70; RESP 19; TEMP 98.4
== END 2021-06-28 06:20 | disposition home or self-care (01) ==
LOC: EC 02:02
DX: K52.9 Noninfective gastroenteritis and colitis, unspecified (principal); K21.9 Gastro-esophageal reflux disease without esophagitis; Z79.890 Hormone replacement therapy; Z20.822 Contact with and (suspected) exposure to COVID-19
CPT/HCPCS: 87635; 99284

== ENCOUNTER 2022-02-06 13:16 | Emergency (ER) | payer BC, OTHER ==
[2022-02-06 13:50] LABS: Appearance,Urine Clear (Clear); Bilirubin,Urine Negative (Negative); Blood,Urine Negative (Negative); Color,Urine Light Yellow; Glucose,Urine (UA) Negative (Negative); Ketones,Urine Negative (Negative); Leukocyte Esterase,Urine Negative (Negative); Nitrite,Urine Negative (Negative); PH, Urine 6.5 (5.0-8.0); Protein,Urine Negative (Negative); Specific Gravity,Urine 1.009 (1.001-1.035); Urobilinogen,Urine <2.0 mg/dL (<2.0)
[2022-02-06 14:33] VITALS: TEMP 101.3
[2022-02-06] MEDS ORDERED: IBUPROFEN 600 MG TAB PO STA (14:37)
[2022-02-06] MEDS ORDERED: SODIUM CHLORIDE 0.9% 1,000 ML IV ONE (14:37)
[2022-02-06] MEDS ORDERED: ACETAMINOPHEN TAB 500 MG TAB PO STA (14:37)
--- NOTE | 2022-02-06 14:43 | ED ---
General Adult HPI - General Chief complaint: Abdominal Pain Stated complaint: fever Time Seen by Provider: 02/06/22 14:30 Source: patient, RN notes reviewed, old records reviewed Mode of arrival: ambulatory Limitations: no limitations - History of Present Illness Initial comments: This is a 31-year-old male presents emergency Department stating last night he started not feeling well started having some achiness in his back bilaterally. Patient states he might have urinary tract infection he denies ever having the past. Patient states she spiked a fever 103.1. Patient states he woke up this morning continued to feel under the weather and decided come emergency department. Patient denies abdominal pain even though in the triage note mentions abdominal pain he states it's mostly in the back pain worse kidneys are. Patient denies any cough patient denies shortness of breath or difficulty breathing. Patient denies any chest pain. Patient states he did not get the code vaccine but he did have "approximately year ago. She denies any rashes or lesions or areas of erythema - Related Data Home Medications Medication Instructions Recorded Confirmed Ascorbic Acid [Vitamin C] 500 mg PO DAILY 06/15/18 07/31/18 Cholecalciferol [Vitamin D3] 1,000 unit PO DAILY 06/15/18 07/31/18 Multivitamin [Multivitamins Adult 1 tab PO DAILY 06/15/18 07/31/18 Gummies] Omeprazole 20 mg PO DAILY PRN 06/15/18 07/31/18 Tumeric (Unknown) 1 tab PO DAILY 07/31/18 07/31/18 Previous Rx's Medication Instructions Recorded HYDROcodone/APAP 5-325MG [[place] 1 tab PO Q6HR PRN 3 Days #12 tab 07/31/18 5-325] Ketorolac [Toradol] 10 mg PO Q8HR #15 tab 12/20/18 Ondansetron Odt [Zofran Odt] 4 mg PO Q8HR PRN #10 tab 12/20/18 Tamsulosin [Flomax] 0.4 mg PO DAILY #7 cap 12/20/18 Allergies Allergy/AdvReac Type Severity Reaction Status Date / Time No Known Allergies Allergy Verified 02/06/22 13:25 Review of Systems ROS Statement: Those systems with pertinent positive or pertinent negative responses have been documented in the HPI. ROS Other: All systems not noted in ROS Statement are negative. Past Medical History Past Medical History: GERD/Reflux Additional Past Medical History / Comment(s): abdominal pain,prior bleeding and mucus with stools,steroid /May 2018. hx of kidney stones. 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 Past Anesthesia/Blood Transfusion Reactions: No Reported Reaction Additional Past Anesthesia/Blood Transfusion Reaction / Comment(s): no hx blood transfusion Past Psychological History: No Psychological Hx Reported Smoking Status: Never smoker Past Alcohol Use History: None Reported Past Drug Use History: None Reported - Past Family History Father Additional Family Medical History / Comment(s): ulcerative colitis Mother Additional Family Medical History / Comment(s): diverticulitis General Exam - General Exam Comments Initial Comments: GENERAL: Patient is well-developed and well-nourished. Patient is nontoxic and well- hydrated and is in mild distress. ENT: Neck is soft and supple. No significant lymphadenopathy is noted. Oropharynx is clear. Moist mucous membranes. Neck has full range of motion without elici ting any pain. EYES: The sclera were anicteric and conjunctiva were pink and moist. Extraocular m ovements were intact and pupils were equal round and reactive to light. Eyelids were unremarkable. PULMONARY: Unlabored respirations. Good breath sounds bilaterally. No audible rales rhonchi or wheezing was noted. CARDIOVASCULAR: There is a regular rate and rhythm without any murmurs gallops or rubs. ABDOMEN: Soft and nontender with normal bowel sounds. SKIN: Skin is clear with no lesions or rashes and otherwise unremarkable. NEUROLOGIC: Patient is alert and oriented x3. Cranial nerves II through XII are grossly intact. Motor and sensory are also intact. Normal speech, volume and content. Symmetrical smile. MUSCULOSKELETAL: Normal extremities with adequate strength and full range of motion. No lower extremity swelling or edema. No calf tenderness. LYMPHATICS: No significant lymphadenopathy is noted PSYCHIATRIC: Normal psychiatric evaluation. Limitations: no limitations Course Vital Signs 02/06/22 02/06/22 02/06/22 13:23 14:33 14:55 Temperature 100 F H 101.3 F H Pulse Rate 107 H 94 Respiratory 16 18 Rate Blood Pressure 147/84 119/70 O2 Sat by Pulse 98 99 Oximetry Medical Decision Making - Lab Data Result diagrams: 02/06/22 14:45 02/06/22 14:45 Lab Results 02/06/22 02/06/22 02/06/22 Range/Units 13:31 14:45 14:45 WBC 4.6 (3.8-10.6) k/uL RBC 4.85 (4.30-5.90) m/uL Hgb 14.4 (13.0-17.5) gm/dL Hct 42.6 (39.0-53.0) % MCV 87.8 (80.0-100.0) fL MCH 29.7 (25.0-35.0) pg MCHC 33.9 (31.0-37.0) g/dL RDW 13.4 (11.5-15.5) % Plt Count 270 (150-450) k/uL MPV 7.4 Neutrophils % 66 % Lymphocytes % 17 % Monocytes % 12 % Eosinophils % 1 % Basophils % 2 % Neutrophils # 3.0 (1.3-7.7) k/uL Lymphocytes # 0.8 L (1.0-4.8) k/uL Monocytes # 0.5 (0-1.0) k/uL Eosinophils # 0.1 (0-0.7) k/uL Basophils # 0.1 (0-0.2) k/uL Sodium (137-145) mmol/L Potassium (3.5-5.1) mmol/L Chloride (98-107) mmol/L Carbon Dioxide (22-30) mmol/L Anion Gap mmol/L BUN (9-20) mg/dL Creatinine (0.66-1.25) mg/dL Est GFR (CKD-EPI)AfAm (>60 ml/min/1.73 sqM) Est GFR (CKD-EPI)NonAf (>60 ml/min/1.73 sqM) Glucose (74-99) mg/dL Calcium (8.4-10.2) mg/dL Total Bilirubin (0.2-1.3) mg/dL AST (17-59) U/L ALT (4-49) U/L Alkaline Phosphatase (38-126) U/L Total Protein (6.3-8.2) g/dL Albumin (3.5-5.0) g/dL Urine Color Light Yellow Urine Appearance Clear (Clear) Urine pH 6.5 (5.0-8.0) Ur Specific [place] 1.009 (1.001-1.035) Urine Protein Negative (Negative) Urine Glucose (UA) Negative (Negative) Urine Ketones Negative (Negative) Urine Blood Negative (Negative) Urine Nitrite Negative (Negative) Urine Bilirubin Negative (Negative) Urine Urobilinogen <2.0 (<2.0) mg/dL Ur Leukocyte Esterase Negative (Negative) Coronavirus (PCR) Detected A (Not Detectd) 02/06/22 Range/Units 14:45 WBC (3.8-10.6) k/uL RBC (4.30-5.90) m/uL Hgb (13.0-17.5) gm/dL Hct (39.0-53.0) % MCV (80.0-100.0) fL MCH (25.0-35.0) pg MCHC (31.0-37.0) g/dL RDW (11.5-15.5) % Plt Count (150-450) k/uL MPV Neutrophils % % Lymphocytes % % Monocytes % % Eosinophils % % Basophils % % Neutrophils # (1.3-7.7) k/uL Lymphocytes # (1.0-4.8) k/uL Monocytes # (0-1.0) k/uL Eosinophils # (0-0.7) k/uL Basophils # (0-0.2) k/uL Sodium 139 (137-145) mmol/L Potassium 4.2 (3.5-5.1) mmol/L Chloride 100 (98-107) mmol/L Carbon Dioxide 25 (22-30) mmol/L Anion Gap 14 mmol/L BUN 10 (9-20) mg/dL Creatinine 0.95 (0.66-1.25) mg/dL Est GFR (CKD-EPI)AfAm >90 (>60 ml/min/1.73 sqM) Est GFR (CKD-EPI)NonAf >90 (>60 ml/min/1.73 sqM) Glucose 91 (74-99) mg/dL Calcium 9.3 (8.4-10.2) mg/dL Total Bilirubin 0.7 (0.2-1.3) mg/dL AST 56 (17-59) U/L ALT 68 H (4-49) U/L Alkaline Phosphatase 86 (38-126) U/L Total Protein 7.7 (6.3-8.2) g/dL Albumin 4.7 (3.5-5.0) g/dL Urine Color Urine Appearance (Clear) Urine pH (5.0-8.0) Ur Specific [place] (1.001-1.035) Urine Protein (Negative) Urine Glucose (UA) (Negative) Urine Ketones (Negative) Urine Blood (Negative) Urine Nitrite (Negative) Urine Bilirubin (Negative) Urine Urobilinogen (<2.0) mg/dL Ur Leukocyte Esterase (Negative) Coronavirus (PCR) (Not Detectd) Disposition Clinical Impression: COVID-19 Disposition: HOME SELF-CARE Condition: Good Instructions (If sedation given, give patient instructions): COVID-19 (Coronavirus Disease 2019) (ED) Is patient prescribed a controlled substance at d/c from ED?: No Referrals: Akhil Mcghee DO [Primary Care Provider] - 1-2 days Time of Disposition: 15:11
[2022-02-06 14:54] LABS: Basophils # (A) 0.1 k/uL (0-0.2); Basophils % (A) 2 %; Eosinophils # (A) 0.1 k/uL (0-0.7); Eosinophils % (A) 1 %; HCT 42.6 % (39.0-53.0); HGB 14.4 gm/dL (13.0-17.5); Lymphocytes # (A) 0.8 k/uL (1.0-4.8); Lymphocytes % (A) 17 %; MCH 29.7 pg (25.0-35.0); MCHC 33.9 g/dL (31.0-37.0); MCV 87.8 fL (80.0-100.0); Mean Platelet Volume 7.4; Monocytes # (A) 0.5 k/uL (0-1.0); Monocytes % (A) 12 %; Neutrophils % (A) 66 %; Platelet Count 270 k/uL (150-450); RBC 4.85 m/uL (4.30-5.90); RDW 13.4 % (11.5-15.5); WBC 4.6 k/uL (3.8-10.6)
[2022-02-06 14:57] VITALS: BP 119/70; PULSE 94; RESP 18
[2022-02-06 15:02] LABS: ALT 68 U/L (4-49); AST 56 U/L (17-59); African American GFR (CKD) >90 (>60 ml/min/1.73 sqM); Albumin 4.7 g/dL (3.5-5.0); Alkaline Phosphatase 86 U/L (38-126); Anion Gap 14 mmol/L; Blood Urea Nitrogen 10 mg/dL (9-20); Calcium 9.3 mg/dL (8.4-10.2); Carbon Dioxide 25 mmol/L (22-30); Chloride 100 mmol/L (98-107); Glucose 91 mg/dL (74-99); Non-African American GFR(CKD) >90 (>60 ml/min/1.73 sqM); Potassium 4.2 mmol/L (3.5-5.1); Sodium 139 mmol/L (137-145); Total Bilirubin 0.7 mg/dL (0.2-1.3); Total Protein 7.7 g/dL (6.3-8.2)
== END 2022-02-06 15:42 | disposition home or self-care (01) ==
LOC: EC 13:16
DX: U07.1 COVID-19 (principal); K21.9 Gastro-esophageal reflux disease without esophagitis; Z79.899 Other long term (current) drug therapy
CPT/HCPCS: 36415; 80053; 81003; 85025; 87635; 96360; 99284

== ENCOUNTER 2024-05-16 17:25 | Observation (INO) | payer OTHER ==
--- NOTE | 2024-05-16 17:50 | ED ---
Chest Pain HPI - General Chief Complaint: Chest Pain Stated Complaint: chest pain Time Seen by Provider: 05/16/24 17:36 Source: patient Mode of arrival: wheelchair Limitations: no limitations - History of Present Illness Initial Comments: 33-year-old male presenting with chief complaint of chest pain. Symptoms started last night. States that they have been progressively worsening. States that it feels like someone is standing on top of his chest. He initially thought the pain was due to indigestion. He is having some radiation to the left side of his neck and down his left arm. Some pain in the left shoulder blade as well. Worse with movement, exertion, and deep breaths. Mild cough. Admits to nausea, shortness of breath, and dizziness. No abdominal pain. No lower extremity swelling. Admits to family history of heart disease - Related Data Home Medications Medication Instructions Recorded Confirmed Ascorbic Acid [Vitamin C] 500 mg PO DAILY 06/15/18 07/31/18 Cholecalciferol [Vitamin D3] 1,000 unit PO DAILY 06/15/18 07/31/18 Multivitamin [Multivitamins Adult 1 tab PO DAILY 06/15/18 07/31/18 Gummies] Omeprazole 20 mg PO DAILY PRN 06/15/18 07/31/18 Tumeric (Unknown) 1 tab PO DAILY 07/31/18 07/31/18 Previous Rx's Medication Instructions Recorded HYDROcodone/APAP 5-325MG [[place] 1 tab PO Q6HR PRN 3 Days #12 tab 07/31/18 5-325] Ketorolac [Toradol] 10 mg PO Q8HR #15 tab 12/20/18 Ondansetron Odt [Zofran Odt] 4 mg PO Q8HR PRN #10 tab 12/20/18 Tamsulosin [Flomax] 0.4 mg PO DAILY #7 cap 12/20/18 Ondansetron Odt [Zofran Odt] 4 mg PO Q8HR PRN #10 tab 06/25/22 Allergies Allergy/AdvReac Type Severity Reaction Status Date / Time No Known Allergies Allergy Verified 05/16/24 17:26 Review of Systems ROS Statement: Those systems with pertinent positive or pertinent negative responses have been documented in the HPI. ROS Other: All systems not noted in ROS Statement are negative. Past Medical History Past Medical History: GERD/Reflux Additional Past Medical History / Comment(s): abdominal pain,prior bleeding and mucus with stools,steroid /May 2018. hx of kidney stones. 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 Past Anesthesia/Blood Transfusion Reactions: No Reported Reaction Additional Past Anesthesia/Blood Transfusion Reaction / Comment(s): no hx blood transfusion Past Psychological History: No Psychological Hx Reported Smoking Status: Never smoker Past Alcohol Use History: Occasional Past Drug Use History: None Reported - Past Family History Father Additional Family Medical History / Comment(s): ulcerative colitis Mother Additional Family Medical History / Comment(s): diverticulitis General Exam Limitations: no limitations General appearance: alert, in no apparent distress Head exam: Present: atraumatic, normocephalic, normal inspection Eye exam: Present: normal appearance, EOMI Neck exam: Present: normal inspection. Absent: meningismus Respiratory exam: Present: normal lung sounds bilaterally. Absent: respiratory distress, wheezes, rales, rhonchi, stridor Cardiovascular Exam: Present: regular rate, normal rhythm, normal heart sounds. Absent: systolic murmur, diastolic murmur, rubs, gallop, clicks Extremities exam: Absent: pedal edema Neurological exam: Present: alert, oriented X3 Psychiatric exam: Present: normal affect, normal mood Skin exam: Present: warm, dry Course Vital Signs 05/16/24 05/16/24 05/16/24 17:26 18:37 19:35 Temperature 97.7 F Pulse Rate 88 79 79 Respiratory 24 18 18 Rate Blood Pressure 147/92 131/80 135/92 O2 Sat by Pulse 99 99 98 Oximetry 05/16/24 05/16/24 05/17/24 20:28 22:58 00:00 Temperature 97.9 F Pulse Rate 82 75 69 Respiratory 18 16 18 Rate Blood Pressure 134/90 120/68 127/73 O2 Sat by Pulse 98 96 96 Oximetry Chest Pain [facility] E[facility] shows sinus rhythm ventricular rate 87. PA interval 151. QRS 93. QT 357. QTc 401. No ST deviation. No previous available for comparison Was pt. sent in by a medical professional or institution (, PA, FORENSIC SPECIALIST, urgent care, hospital, or care home...) When possible be specific @ -No Did you speak to anyone other than the patient for history (EMS, parent, family, police, friend...)? What history was obtained from this source @ -No Did you review nursing and triage notes (agree or disagree)? Why? @ -I reviewed and agree with nursing and triage notes Were old charts reviewed (outside hosp., previous admission, EMS record, old EKG, old radiological studies, urgent care reports/EKG's, care home records)? Report findings @ -No old charts were reviewed Differential Diagnosis (chest pain, altered mental status, abdominal pain women, abdominal pain men, vaginal bleeding, weakness, fever, dyspnea, syncope, headache, dizziness, GI bleed, back pain, seizure, CVA, palpatations, mental health, musculoskeletal)? @ -MDM Differential Chest Pain: Stable Angina, Unstable Angina, STEMI, NSTEMI Aortic Dissection, Pneumothorax, Musculoskeletal, Esophageal Spasm GERD, Cholecystitis, Pancreatitis, Zoster This is not meant to be an all-inclusive list. EKG interpreted by me (3pts min.). @ -As above X-rays interpreted by me (1pt min.). @ -Chest x-ray shows no acute process CT interpreted by me (1pt min.). @ -None done U/S interpreted by me (1pt. min.). @ -None done What testing was considered but not performed or refused? (CT, X-rays, U/S, labs)? Why? @ -None What meds were considered but not given or refused? Why? @ -None Did you discuss the management of the patient with other professionals (professionals i.e. , PA, FORENSIC SPECIALIST, lab, RT, psych nurse, health care social worker, hands hanger, teacher, senior administrative services officer, casework supervisor)? Give summary @ -Spoke with Dr. Jolley who accepts admission Was smoking cessation discussed for >3mins.? @ -No Was critical care preformed (if so, how long)? @ -No Were there social determinants of health that impacted care today? How? (Homelessness, low income, unemployed, alcoholism, drug addiction, transportation, low edu. Level, literacy, decrease access to med. care, halfway, rehab)? @ -No Was there de-escalation of care discussed even if they declined (Discuss DNR or withdrawal of care, Hospice)? DNR status @ -No What co-morbidities impacted this encounter? (DM, HTN, Smoking, COPD, CAD, Cancer, CVA, ARF, Chemo, Hep., AIDS, mental health diagnosis, sleep apnea, morbid obesity)? @ -None Was patient admitted / discharged? Hospital course, mention meds given and route, prescriptions, significant lab abnormalities, going to OR and other pertinent info. @ -33-year-old male presenting with chief complaint of chest pain. History and physical examination are conducted. Negative troponin. D-dimer WNL. No leukocytosis or anemia. Chest x-ray shows no acute process and EKG shows sinus rhythm. Given the patient's description of his pain, history of hypertension, morbid obesity, and family history of heart disease he is heart score 4 and will be admitted for evaluation by cardiology and echo. Patient is agreeable with this plan. I discussed this case with my attending Dr. Iglesias. Undiagnosed new problem with uncertain prognosis? @ -No Drug Therapy requiring intensive monitoring for toxicity (Heparin, Nitro, Insulin, Cardizem)? @ -No Were any procedures done? @ -No Diagnosis/symptom? @ -Chest pain Acute, or Chronic, or Acute on Chronic? @ -Acute Uncomplicated (without systemic symptoms) or Complicated (systemic symptoms)? @ -Complicated Side effects of treatment? @ -No Exacerbation, Progression, or Severe Exacerbation? @ -No Poses a threat to life or bodily function? How? (Chest pain, [place], [place], pneumonia, PE, COPD, DKA, ARF, appy, cholecystitis, CVA, Diverticulitis, Homicidal, Suicidal, threat to staff... and all critical care pts) @ -Yes Disposition Clinical Impression: Chest pain Disposition: ADMITTED IP TO THIS HOSP Condition: Fair
[2024-05-16] MEDS: NITROGLYCERIN SL TABS 0.4 MG TAB SUBLINGUAL STA ×2 (18:01→20:05)
[2024-05-16 18:12] LABS: Basophils % (A) 0 %; Eosinophils # (A) 0.2 k/uL (0-0.7); Eosinophils % (A) 2 %; HCT 40.7 % (39.0-53.0); HGB 14.1 gm/dL (13.0-17.5); Lymphocytes % (A) 24 %; MCH 30.3 pg (25.0-35.0); MCHC 34.7 g/dL (31.0-37.0); MCV 87.2 fL (80.0-100.0); Mean Platelet Volume 7.6; Monocytes # (A) 0.4 k/uL (0-1.0); Monocytes % (A) 5 %; Neutrophils # (A) 5.6 k/uL (1.3-7.7); Neutrophils % (A) 67 %; Platelet Count 300 k/uL (150-450); RBC 4.67 m/uL (4.30-5.90); RDW 13.7 % (11.5-15.5); WBC 8.4 k/uL (3.8-10.6)
--- NOTE | 2024-05-16 18:24 | XR ---
EXAMINATION TYPE: XR chest 2V DATE OF EXAM: 05/16/2024 6:17 PM COMPARISON: 07/02/2019 CLINICAL INDICATION: Male, 33 years old with history of Chest Pain,States he thought it was indigesti on but now feels like somebody is standing on his chest, his heart is "flipping", and pain is shootin g down L arm. Endorses nausea, SOB, and L jaw/neck pain TECHNIQUE: XR chest 2V view(s) obtained. FINDINGS: The heart size is normal. The pulmonary vasculature is normal. The lungs are clear. IMPRESSION: 1. No acute pulmonary process. [facility], , 05/16/2024 6:22 PM
[2024-05-16 18:26] LABS: ALT 32 U/L (4-49); AST 26 U/L (17-59); African American GFR (CKD) >90 (>60 ml/min/1.73 sqM); Albumin 4.6 g/dL (3.5-5.0); Alkaline Phosphatase 90 U/L (38-126); Anion Gap 11 mmol/L; Blood Urea Nitrogen 17 mg/dL (9-20); Calcium 9.7 mg/dL (8.4-10.2); Carbon Dioxide 25 mmol/L (22-30); Chloride 104 mmol/L (98-107); Glucose 87 mg/dL (74-99); Lipase 94 U/L (23-300); Magnesium 1.9 mg/dL (1.6-2.3); Non-African American GFR(CKD) >90 (>60 ml/min/1.73 sqM); Potassium 4.1 mmol/L (3.5-5.1); Salicylate <1.0 mg/dL; Sodium 140 mmol/L (137-145); Total Bilirubin 0.4 mg/dL (0.2-1.3); Total Protein 7.6 g/dL (6.3-8.2)
[2024-05-16 18:36] LABS: INR 0.9 (<1.2); Partial Thromboplastin Time 26.3 sec (22.0-30.0)
[2024-05-16 19:54] LABS: Appearance,Urine Clear (Clear); Bilirubin,Urine Negative (Negative); Blood,Urine Negative (Negative); Calcium Oxalate Crystals,Urine Occasional /hpf; Color,Urine Light Yellow; Glucose,Urine (UA) Negative (Negative); Ketones,Urine Negative (Negative); Leukocyte Esterase,Urine Small (Negative); Mucus,Urine Occasional /hpf; Nitrite,Urine Negative (Negative); Protein,Urine Negative (Negative); RBC,Urine 2 /hpf (0-5); Specific Gravity,Urine 1.026 (1.001-1.035); Squamous Epithelial Cell,Urine <1 /hpf (0-4); Urobilinogen,Urine <2.0 mg/dL (<2.0); WBC,Urine 10 /hpf (0-5)
[2024-05-16] MEDS ORDERED: NALOXONE 0.4 MG/ML 1 ML VIAL IV PRN (21:04)
[2024-05-16] MEDS ORDERED: LORazepam 1 MG TAB PO PRN (23:19)
--- NOTE | 2024-05-16 23:40 | P.HPIM ---
History of Present Illness H&P Date: 05/15/24 33 year old male with hypertension not on medications, GERD patient coming in for evaluation of sudden onset chest pain that started last night at rest after he watched the Hockey game , he managed to sleep and rest , but woke up to the same pain and decided to come in for evaluation due to family history of CAD usually around age of 50. he describes chest tightness retrosternal with feeling near syncope, dizzy weak, sweaty, nauseated, and short of breath. he never had any cardiac workup before, denies any CAD. he denies smoking, drugs or alcohol he denies any recent travel or hospital stay , denies any history of blood clots review of systems Pertinent positives as noted in HPI. All other systems were reviewed and are negative on exam Constitutional: No acute distress, conversant, pleasant Eyes: Anicteric sclerae, moist conjunctiva, Pupils equal round reactive to light ENMT: NC/AT Oropharynx clear, no erythema, or exudates Neck: Supple, no masses, or JVD No carotid bruits No thyromegaly Lungs: Clear to auscultation Clear to percussion Normal respiratory effort, no accessory muscle use Cardiovascular: Heart regular in rate and rhythm, No murmurs, gallops, or rubs No peripheral edema Abdominal: Soft Nontender, no guarding, rebound or rigidity Abdomen moving with respiration Normoactive bowel sounds Extremities: No digital cyanosis No clubbing Pedal pulses intact and symmetrical Radial pulses intact and symmetrical No calf tenderness Psychiatric: Alert and oriented to person, place and time Appropriate affect fair judgement Neuro Muscles Strength 5/5 in all 4 extremities Sensation to light touch grossly present throughout Cranial nerves II-XII grossly intact Past Medical History Past Medical History: GERD/Reflux History of Any Multi-Drug Resistant Organisms: None Reported Additional Past Surgical History / Comment(s): 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 Past Anesthesia/Blood Transfusion Reactions: No Reported Reaction Additional Past Anesthesia/Blood Transfusion Reaction / Comment(s): no hx blood transfusion Past Psychological History: No Psychological Hx Reported Smoking Status: Never smoker Past Alcohol Use History: Occasional Past Drug Use History: None Reported - Past Family History Father Additional Family Medical History / Comment(s): ulcerative colitis Mother Additional Family Medical History / Comment(s): diverticulitis Medications and Allergies Home Medications Medication Instructions Recorded Confirmed Type Ascorbic Acid [Vitamin C] 500 mg PO DAILY 02/11/19 03/29/19 History Cholecalciferol [Vitamin D3] 1,000 unit PO DAILY 06/15/18 07/31/18 History Multivitamin [Multivitamins Adult 1 tab PO DAILY 06/15/18 07/31/18 History Gummies] Omeprazole 20 mg PO DAILY PRN 06/15/18 07/31/18 History HYDROcodone/APAP 5-325MG [[place] 1 tab PO Q6HR PRN 3 Days #12 tab 07/31/18 Rx 5-325] Tumeric (Unknown) 1 tab PO DAILY 07/31/18 07/31/18 History Ketorolac [Toradol] 10 mg PO Q8HR #15 tab 12/20/18 Rx Ondansetron Odt [Zofran Odt] 4 mg PO Q8HR PRN #10 tab 12/20/18 Rx Tamsulosin [Flomax] 0.4 mg PO DAILY #7 cap 12/20/18 Rx Ondansetron Odt [Zofran Odt] 4 mg PO Q8HR PRN #10 tab 06/25/22 Rx Allergies Allergy/AdvReac Type Severity Reaction Status Date / Time No Known Allergies Allergy Verified 05/16/24 17:26 Physical Exam Vitals: Vital Signs Temp Pulse Resp BP Pulse Ox 05/16/24 20:28 82 18 134/90 98 05/16/24 19:35 79 18 135/92 98 05/16/24 18:37 79 18 131/80 99 05/16/24 17:26 97.7 F 88 24 147/92 99 Intake and Output 05/16/24 05/16/24 05/16/24 06:59 14:59 22:59 Other: Weight 145.15 kg Results CBC & Chem 7: 05/16/24 18:00 05/16/24 18:00 Labs: Abnormal Lab Results - Last 24 Hours (Table) 05/16/24 Range/Units 19:33 Ur Leukocyte Esterase Small H (Negative) Urine WBC 10 H (0-5) /hpf Calcium Oxalate Crystal Occasional H (None) /hpf Urine Mucus Occasional H (None) /hpf Assessment and Plan Assessment: 33 year old male with hypertension not on medications, GERD coming in for chest pain evaluation , I discussed the case with ED doc and I accepted the admission for atypical chest pain to rule out ACS Atypical chest pain EKG no acute ST changes, trops negative continue to trend pain improved with nitro, continue PRN sl nitro as needed aspirin 81 mg po daily check lipid panel , TSH , echo pvc monitor Ativan 1 mg po TID PRN anxiety cardio consult blood work otherwise unremarkable WBC 8, Hgb 14 , NA 140, K 4 BN 17 cr 0.8 full code DVT PPX lovenox 40 mg sc daily GI PPX protonix 40 mg po daily
[2024-05-17] MEDS: ACETAMINOPHEN TAB 325 MG TAB PO PRN (04:22)
[2024-05-17] MEDS: TAMSULOSIN 0.4 MG CAP.ER.24H PO SCH (08:26)
[2024-05-17] MEDS: PANTOPRAZOLE 40 MG TABLET PO SCH (08:26)
[2024-05-17] MEDS: ASPIRIN 81 MG PO SCH (08:26)
[2024-05-17] MEDS: ENOXAPARIN 40 MG/0.4 ML SYRINGE SQ SCH (08:26)
[2024-05-17 09:20] LABS: Chol/HDL Ratio 6.26 Ratio; LDL Cholesterol,Calculated 97.8 mg/dL (0.0-131.0)
--- NOTE | 2024-05-17 10:42 | CA ---
Transthoracic Echo Report Name: Celestino Crandall Age: 33 Gender: M : 1990 Exam Date: 05/17/2024 07:56 Exam Location: [place] [facility] Ht (in): 74 Wt (lb): 320 Ordering Physician: Genny Chou Attending/Referring Phys: Food Handler Omayra Dorsey RDCS Procedure CPT: Indications: Chest Pain Cardiac Hx: Technical Quality: Fair Contrast 1: Definity Total Dose (mL): 2 Contrast 2: Total Dose (mL): MEASUREMENTS (Male / Female) Normal Values 2D ECHO LV Diastolic Diameter PLAX 4.9 cm 4.2 - 5.9 / 3.9 - 5.3 cm LV Systolic Diameter PLAX 2.9 cm IVS Diastolic Thickness 1.4 cm 0.6 - 1.0 / 0.6 - 0.9 cm LVPW Diastolic Thickness 1.4 cm 0.6 - 1.0 / 0.6 - 0.9 cm LV Relative Wall Thickness 0.6 RV Internal Dim ED PLAX 2.7 cm LA Systolic Diameter LX 4.4 cm 3.0 - 4.0 / 2.7 - 3.8 cm M-MODE Aortic Root Diameter MM 3.7 cm LA Systolic Diameter MM 4.6 cm LA Ao Ratio MM 1.3 AV Cusp Separation MM 2.5 cm DOPPLER Mitral E Point Velocity 93.4 cm/s Mitral A Point Velocity 56.7 cm/s Mitral E to A Ratio 1.6 MV Deceleration Time 220.6 ms MV E' Velocity 9.3 cm/s Mitral E to MV E' Ratio 10.1 FINDINGS Left Ventricle Left ventricular ejection fraction is estimated at 50-55%. Normal left ventricular systolic function with no obvious regional wall motion abnormalities. Left ventricular cavity size normal.Mildly increased left ventricular wall thickness. Right Ventricle Mild right ventricular dilatation. Unable to estimate the right ventricular systolic pressure. Right Atrium Mild right atrial dilatation. Left Atrium Mildly increased left atrial diameter. Mitral Valve Structurally normal mitral valve. Mild mitral regurgitation. No mitral stenosis. Aortic Valve Trileaflet aortic valve. No aortic valve stenosis or regurgitation. Tricuspid Valve Structurally normal tricuspid valve. Mild tricuspid regurgitation. No tricuspid stenosis. Pulmonic Valve Pulmonic valve not well visualized. . No pulmonic stenosis. Trace pulmonic regurgitation. Pericardium No pericardial or pleural effusion. Aorta Aorta at upper limits of normal. CONCLUSIONS 1. Normal left ventricular size and systolic function 2. Mild mitral and tricuspid regurgitation Technically difficult study. Definity ECHO contrast used for improved visualization of the endocardial borders (inadequate visualization of two or more contiguous segments). Previewed by: Dr. Russell Gomez MD (Electronically Signed) Final Date: 17 May 2024 10:41
--- NOTE | 2024-05-17 10:54 | CA ---
Stress Echo Report Celestino Crandall Age: 33 Gender: M : 1990 Exam Date: 05/17/2024 09:23 Exam Location: [facility] Echo Ht (in): 74 Wt (lb): 325 Ordering Physician: Babs Monsivais Referring Physician: [id number] Nut Orchardist: PETE, Technologist Procedure CPT: Indication: CP ICD-9 Codes: Rhythm: Patient History: Chest pain and palpitations Cardiac Medications: Medications in past 24 hours: Contrast: Definity Stress Results Protocol: Moreno Total dose(mL): 2 Exercise Duration (min:sec): 9:[address] Depression (mm): 0 Angina Score: 0 Yee Score: 9.7 METS: 11.3 Resting HR: 74 Resting BP: 160 / 98 Peak HR: 166 Peak BP: 217 / 76 Max Predicted HR: 185 90 % Max Predicted HR Target HR: 157 Double Product: 39115 Stress Summary: BP Response: Normal Reason for Termination: Reached target heart rate or work- load., Maximal effort/unable to continue Cardiac Symptoms: Chest pain ECG Analysis Resting ECG: Normal sinus rhythm, normal ECG Stress ECG: No abnormal ST/T wave changes with exercise Arrhythmia: None Echo Analysis Resting Echo: Normal resting echocardiogram. Peak Echo Analysis: Normal wall thickening and motion at peak exercise MEASUREMENTS (Male/Female) Normal Values CONCLUSIONS Patient falls into low-risk group (DTS >= +5). This associates the patient with an annual CV mortality <= 0.5%. Good exercise tolerance with normal electrocardiographic response to exercise Normal stress echocardiogram with no evidence of stress induced ischemia Dr. Russell Gomez MD (Electronically Signed) Final Date: 17 May 2024 10:53
[2024-05-17 12:06] VITALS: BP 148/96; PULSE 98; RESP 16; TEMP 98.4
--- NOTE | 2024-05-17 12:18 | P.CRDCN ---
History of Present Illness History of present illness: HISTORY OF PRESENT ILLNESS: This is a 33-year-old male with a past medical history significant for concussion 4 years ago, seizures, kidney stones with hematuria, hypertension, and occasional nicotine use out of a pipe. 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 We have been asked to see the patient in consultation for chest pain. Patient examined at the bedside in the emergency room. Patient states 2 nights ago he started to have chest discomfort. He states the pain went away on its own. However yesterday he was playing with his kids when he started to have chest pain again that radiation into his left arm. He states the pain is worse with deep inspiration and chest wall palpation. He reports that he has been feeling short of breath recently as well. He denies alcohol use. He reports 1 cup of coffee daily. He does report occasional nicotine use with a pipe. He do es report a family history of CAD and states that his dad has a history of CAD. He reports his uncle of a massive heart attack and his grandma also of a heart attack at the age of 59. DIAGNOSTICS: - EKG reveals sinus mechanism with no signs of acute ischemia - Chest xray negative for acute process - Laboratory data: WBC 8.4. Hemoglobin 14.1. Platelet count 300. D-dimer 0.27. Sodium 140. Potassium 4.1. BUN 17. Creatinine 0.82. Magnesium 1.9. Troponin negative x 3. - Current home cardiac medications include none - No previous echocardiogram, stress test, or cardiac catheterization available in EMR for review REVIEW OF SYSTEMS: At the time of my exam: CONSTITUTIONAL: Denies fever or chills. HEENT: Denies blurred vision, vision changes, or eye pain. Denies hemoptysis CARDIOVASCULAR: Denies chest pain. Denies orthopnea. Denies PND. Denies palpitations RESPIRATORY: Denies shortness of breath. GASTROINTESTINAL: Denies abdominal pain. Denies nausea or vomiting. HEMATOLOGIC: Denies bleeding disorders. GENITOURINARY: Denies any blood in urine. SKIN: Denies pruitis. Denies rash. PHYSICAL EXAM: VITAL SIGNS: Reviewed. GENERAL: Well-developed in no acute distress. HEENT: Head is normocephalic. Pupils are equal, round. Sclerae anicteric. Mucous membranes of the mouth are moist. Neck supple. No JVD or thyromegaly LUNGS: Respirations even and unlabored. Lungs essentially clear to auscultation bilaterally. HEART: Regular rate and rhythm. S1 and S2 heard. ABDOMEN: Soft. Nondistended. Nontender. EXTREMITIES: Normal range of motion. No clubbing or cyanosis. Peripheral pulses intact. No lower extremity edema NEUROLOGIC: Awake and alert. Oriented x 3. ASSESSMENT: Chest pain, troponin negative x 3 History of concussion 4 years ago with subsequent seizures History of kidney stones with hematuria Reported hypertension not on antihypertensive medications outpatient Occasional nicotine use with a pipe Morbid obesity: BMI 41.1 Family history of CAD PLAN: An acute coronary event has been ruled out Obtain 2D echo to assess cardiac structure and function Patient to undergo stress echocardiogram today If negative, patient may be discharged home from a cardiac standpoint Further recommendations pending patient course Nurse practitioner note has been reviewed by physician. Signing provider agrees with the documented findings, assessment, and plan of care documented by HOLLOW HANDLE KNIFE ASSEMBLER as a scribe. Past Medical History Past Medical History: GERD/Reflux Additional Past Medical History / Comment(s): abdominal pain,prior bleeding and mucus with stools,steroid /May 2018. hx of kidney stones. 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 Past Anesthesia/Blood Transfusion Reactions: No Reported Reaction Additional Past Anesthesia/Blood Transfusion Reaction / Comment(s): no hx blood transfusion Past Psychological History: No Psychological Hx Reported Smoking Status: Never smoker Past Alcohol Use History: Occasional Past Drug Use History: None Reported - Past Family History Father Additional Family Medical History / Comment(s): ulcerative colitis Mother Additional Family Medical History / Comment(s): diverticulitis Medications and Allergies Home Medications Medication Instructions Recorded Confirmed Type No Known Home Medications 05/17/24 05/17/24 History Allergies Allergy/AdvReac Type Severity Reaction Status Date / Time No Known Allergies Allergy Verified 05/17/24 07:58 Physical Exam Vitals: Vital Signs Temp Pulse Resp BP Pulse Ox 05/17/24 06:00 67 18 123/73 98 05/17/24 04:00 70 18 128/88 97 05/17/24 03:00 75 18 125/75 97 05/17/24 00:00 69 18 127/73 96 05/16/24 22:58 97.9 F 75 16 120/68 96 05/16/24 20:28 82 18 134/90 98 05/16/24 19:35 79 18 135/92 98 05/16/24 18:37 79 18 131/80 99 05/16/24 17:26 97.7 F 88 24 147/92 99 Intake and Output 05/16/24 05/17/24 05/17/24 22:59 06:59 14:59 Other: Weight 145.15 kg Results 05/16/24 18:00 05/16/24 18:00 Cardiac Enzymes 05/16/24 05/16/24 05/16/24 Range/Units 18:00 18:00 23:38 AST 26 (17-59) U/L Troponin I <0.012 <0.012 (0.000-0.034) ng/mL 05/17/24 Range/Units 02:44 AST (17-59) U/L Troponin I <0.012 (0.000-0.034) ng/mL Coagulation 05/16/24 Range/Units 18:00 PT 10.0 (10.0-12.5) sec APTT 26.3 (22.0-30.0) sec CBC 05/16/24 Range/Units 18:00 WBC 8.4 (3.8-10.6) k/uL RBC 4.67 (4.30-5.90) m/uL Hgb 14.1 (13.0-17.5) gm/dL Hct 40.7 (39.0-53.0) % Plt Count 300 (150-450) k/uL Comprehensive Metabolic Panel 05/16/24 Range/Units 18:00 Sodium 140 (137-145) mmol/L Potassium 4.1 (3.5-5.1) mmol/L Chloride 104 (98-107) mmol/L Carbon Dioxide 25 (22-30) mmol/L BUN 17 (9-20) mg/dL Creatinine 0.82 (0.66-1.25) mg/dL Glucose 87 (74-99) mg/dL Calcium 9.7 (8.4-10.2) mg/dL AST 26 (17-59) U/L ALT 32 (4-49) U/L Alkaline Phosphatase 90 (38-126) U/L Total Protein 7.6 (6.3-8.2) g/dL Albumin 4.6 (3.5-5.0) g/dL Current Medications Generic Name Dose Route Start Last Admin Trade Name Freq PRN Reason Stop Dose Admin Acetaminophen 650 mg 05/16/24 21:09 05/17/24 04:22 Acetaminophen Tab 325 Mg Tab PO 650 mg Q6HR PRN Administration Mild Pain or Fever > 100.5 Aspirin 81 mg 05/17/24 09:00 Aspirin 81 Mg PO DAILY [facility] Enoxaparin Sodium 40 mg 05/17/24 09:00 Enoxaparin 40 Mg/0.4 Ml Syringe SQ DAILY NOEMÍ Lorazepam 1 mg 05/16/24 23:19 Lorazepam 1 Mg Tab PO Q8HR PRN Anxiety Naloxone HCl 0.2 mg 05/16/24 21:04 Naloxone 0.4 Mg/Ml 1 Ml Vial IV Q2M PRN Opioid Reversal Pantoprazole Sodium 40 mg 05/17/24 07:30 Pantoprazole 40 Mg Tablet PO DAILY@0730 [facility] Tamsulosin HCl 0.4 mg 05/17/24 09:00 Tamsulosin 0.4 Mg Cap.Er.24h PO DAILY [facility] Intake and Output 05/16/24 05/17/24 05/17/24 22:59 06:59 14:59 Other: Weight 145.15 kg 05/16/24 18:00 05/16/24 18:00
--- NOTE | 2024-05-17 16:12 | P.DS ---
Providers Date of admission: 05/16/24 21:04 Expected date of discharge: 05/17/24 Attending physician: Romain Jolley MD Consults: 05/16/24 21:09 Consult Physician Urgent Consulting Provider: [facility] Consult Reason/Comments: chest pain Do you want consulting provider notified?: Yes, Notify in am Primary care physician: Akhil Mcghee Hospital Course: Discharge diagnosis; Atypical chest pain Triglyceridemia History of concussion 4 years ago with subsequent seizures History of kidney stones with hematuria Morbid obesity: BMI 41.1 Hospital course; 33 year old male with hypertension not on medications, GERD patient coming in for evaluation of sudden onset chest pain that started last night at rest after he watched the Hockey game , he managed to sleep and rest , but woke up to the same pain and decided to come in for evaluation due to family history of CAD usually around age of 50. he describes chest tightness retrosternal with feeling near syncope, dizzy weak, sweaty, nauseated, and short of breath. he never had any cardiac workup before, denies any CAD. he denies smoking, drugs or alcohol he denies any recent travel or hospital stay , denies any history of blood clots During hospital stay patient was treated for atypical chest pain. Troponins were [address] elevation or depression on EKG. Echocardiogram showed normal LV function, and stress echo with no evidence of stress-induced ischemia. Patient was seen by cardiology who ruled out ACS. Lipids are elevated triglycerides 326 elevated, cholesterol 194 WNL. Patient is stable for discharge to home. Low ASCVD score, no statins indicated at the moment. No new medications. He is to follow-up with his PCP or academic internal medicine. Physical exam Constitutional: No acute distress, conversant, pleasant Eyes: Anicteric sclerae, moist conjunctiva, Pupils equal round reactive to light ENMT: NC/AT Oropharynx clear, no erythema, or exudates Neck: Supple, no masses, or JVD No carotid bruits No thyromegaly Lungs: Clear to auscultation Clear to percussion Normal respiratory effort, no accessory muscle use Cardiovascular: Heart regular in rate and rhythm, No murmurs, gallops, or rubs No peripheral edema Abdominal: Soft Nontender, no guarding, rebound or rigidity Abdomen moving with respiration Normoactive bowel sounds Extremities: No digital cyanosis No clubbing Pedal pulses intact and symmetrical Radial pulses intact and symmetrical No calf tenderness Psychiatric: Alert and oriented to person, place and time Appropriate affect fair judgement Neuro Muscles Strength 5/5 in all 4 extremities Sensation to light touch grossly present throughout Cranial nerves II-XII grossly intact A total of 36 minutes of time were spent preparing this complex discharge summary. Patient was discharged on 05/17/2024 at 1130. I have seen and evaluated the patient today. Discussed with the resident and agree with the residents finding and plan as documented in the resident's note. Changes highlighted in blue font. Patient Condition at Discharge: Stable Plan - Discharge Summary New Discharge Prescriptions: No Action No Known Home Medications Discharge Medication List No Known Home Medications 05/17/24 [History] Follow up Appointment(s)/Referral(s): [facility] [NON-STAFF] - 1-2 Days Patient Instructions/Handouts: Noncardiac Chest Pain (DC) Discharge Disposition: HOME SELF-CARE
== END 2024-05-17 12:10 | disposition home or self-care (01) ==
LOC: EC 17:25 → 6NMEDSUR 21:04
PROVIDERS: ADMIT Internal Medicine; ATTEND Internal Medicine
DX: R07.89 Other chest pain (principal); K21.9 Gastro-esophageal reflux disease without esophagitis; I10 Essential (primary) hypertension; E78.1 Pure hyperglyceridemia; F17.290 Nicotine dependence, other tobacco product, uncomplicated; E66.01 Morbid (severe) obesity due to excess calories; Z68.41 Body mass index [BMI] 40.0-44.9, adult; Z79.899 Other long term (current) drug therapy; Z82.49 Family history of ischemic heart disease and other diseases of the circulatory system
CPT/HCPCS: 96372; 99285; 36415; 93005; 85379; 80061; 80053; 84443; 83690; 83735; 84484 ×2; 85025; 85610; 85730; 81001; 80179; 71046; G0378 ×2; C8929; C8930; J1650; Q9957 ×2; 93306; 93351

== ENCOUNTER 2024-10-14 09:24 | Day surgery (SDC) | payer OTHER ==
[2024-10-13 09:10] VITALS: BMI 36.2
[2024-10-14] MEDS: IV FLUID CONTINUATION 1,000 ML IV ONE (10:24)
[2024-10-14 10:27] VITALS: TEMP 97.2
[2024-10-14] MEDS: LACTATED RINGERS 1,000 ML IV SCH (10:35)
[2024-10-14] MEDS ORDERED: PROPOFOL 10 MG/ML 20 ML VIAL IV ONE (10:57)
--- NOTE | 2024-10-14 11:00 | P.GSHP ---
History of Present Illness H&P Date: 10/14/24 Chief Complaint: Right lower quad abdominal pain, colitis Is a 34-year-old male who presents today for colonoscopy. Patient has had issues with right lower quadrant abdominal pain. He is also had some change in bowel habit with diarrhea. Past Medical History Past Medical History: GERD/Reflux Additional Past Medical History / Comment(s): abdominal pain, kidney stones. STRICTURES TO URETER, RUQ PAIN History of Any Multi-Drug Resistant Organisms: None Reported Additional Past Surgical History / Comment(s): EGD, Past Anesthesia/Blood Transfusion Reactions: No Reported Reaction Additional Past Anesthesia/Blood Transfusion Reaction / Comment(s): no hx blood transfusion Smoking Status: Never smoker - Past Family History Father Additional Family Medical History / Comment(s): ulcerative colitis Mother Additional Family Medical History / Comment(s): diverticulitis Medications and Allergies Home Medications Medication Instructions Recorded Confirmed Type No Known Home Medications 05/17/24 10/14/24 History Allergies Allergy/AdvReac Type Severity Reaction Status Date / Time No Known Allergies Allergy Verified 10/14/24 10:18 Surgical - Exam Vital Signs Temp Pulse Resp BP Pulse Ox 97.2 F L 80 18 126/87 98 10/14/24 10:18 10/14/24 10:18 10/14/24 10:18 10/14/24 10:18 10/14/24 10:18 - General well developed, well nourished, no distress - Eyes PERRL - ENT normal pinna - Neck no masses - Respiratory normal expansion - Cardiovascular Rhythm: regular - Abdomen Abdomen: soft, non tender Assessment and Plan Assessment: Will perform colonoscopy
--- NOTE | 2024-10-14 11:11 | P.OP ---
Date of Procedure: 10/14/24 Preoperative Diagnosis: Right lower quadrant pain Colitis Postoperative Diagnosis: Mild diverticulosis Procedure(s) Performed: Colonoscopy Anesthesia: MAC Surgeon: Donte Cohn Pathology: none sent Condition: stable Disposition: PACU Description of Procedure: The patient was placed on the endoscopy table in the lateral position. He received IV sedation. Digital rectal exam was performed. This revealed no abnormalities. Flexible colonoscope was then placed patient anus and passed throughout the entire colon. The ileocecal valve was visualized. The cecum, ascending and transverse colon appeared normal. In the descending sigmoid colon there is mild diverticular changes. The scope was then brought back the rectum this appeared normal. Scope withdrawn patient.
[2024-10-14 11:38] VITALS: BP 127/73; PULSE 69; RESP 16
== END 2024-10-14 12:09 | disposition home or self-care (01) ==
LOC: ORWHC2ENDO 09:24
PROVIDERS: ATTEND Surgery
DX: K57.30 Diverticulosis of large intestine without perforation or abscess without bleeding (principal); K21.9 Gastro-esophageal reflux disease without esophagitis
CPT/HCPCS: 45378; J2704